=== PATIENT | female | born 1975 | race Caucasian/White ===

== ENCOUNTER 2022-10-01 10:38 | Outpatient (CLI) | payer BC, SELFPAY ==
--- NOTE | ~2022-10-01 | MR_ITS ---
EXAMINATION: MR brain/brain stem wo/w con DATE: 10/01/2022 11:40 INDICATION: Headache. Neck pain. TECHNIQUE: Magnetic resonance imaging (MRI) of the brain and brainstem was performed without and with 15 mL MultiHance intravenous contrast. COMPARISON: None. FINDINGS: There is no intracranial hemorrhage, acute infarction, or abnormal intracranial mass lesion . The ventricles are normal in size. There is an old blowout fracture of medial wall left orbit. The paranasal sinuses are clear. The mastoid air cells are normal. The IMPRESSION: 1. Normal brain. Reviewed, dictated and finalized at location A. MAKER'S CLERK IMPRESSION: 1. Normal brain.
== END 2022-10-01 10:39 | disposition home or self-care (01) ==
PROVIDERS: PCP Physician Assistant Medical; Visit Provider Physician Assistant Medical
DX: R51.9 Headache, unspecified (principal)
CPT/HCPCS: 70553; A9577

== ENCOUNTER → 2022-10-10 10:41 | Outpatient (CLI) | payer BC, SELFPAY ==
--- NOTE | ~2022-10-10 | MR_ITS ---
MRI of the cervical spine Clinical History: Pain Technique: Axial T2-weighted and gradient images, and sagittal T1-weighted, T2-weighted, and STIR regine ges were acquired. Findings: No acute fracture seen. Minimal grade 1 anterolisthesis of C3 over C4 noted. There are disc prostheses at the C4-C5 and C5-C6 disc spaces. No suspicious bone marrow signal abnormality identifi ed. At C2-C3, there is minimal disc osteophyte complex at the left paracentral region. No mateus spinal ca nal stenosis or cord compression. Neural foramina are preserved. At C3-C4, there is no significant disc bulge or herniation. Probable mild facet joint degenerative ch anges. No mateus canal stenosis or cord compression. No definite neural foraminal narrowing. At C4-C5, there is no definite disc bulge or herniation. No definite canal stenosis or cord compressi on. There is probable mild bilateral neural foraminal narrowing. At C5-C6, there is no definite disc bulge or herniation. No definite canal stenosis or cord compressi on. Possible mild bilateral neural foraminal narrowing. At C6-C7, there is no disc bulge or herniation. No spinal canal stenosis, cord compression, or neural foraminal narrowing. No abnormal signal seen in the spinal cord. Paravertebral soft tissues are unremarkable. Impression: Probable mild bilateral neural foraminal narrowing at C4-C5 and C5-C6. Minimal grade 1 anterolisthesis of C3 over C4. Intervertebral disc prostheses at the C4-C5 and C5-C6 disc spaces. Reviewed, dictated and finalized at [facility]. SALES SPECIALIST Impression: Probable mild bilateral neural foraminal narrowing at C4-C5 and C5-C6. Minimal grade 1 anterolisthesis of C3 over C4. Intervertebral disc prostheses at the C4-C5 and C5-C6 disc spaces.
== END ==
PROVIDERS: PCP Physician Assistant Medical; Visit Provider Physician Assistant Medical
DX: M54.2 Cervicalgia (principal); R51.9 Headache, unspecified
CPT/HCPCS: 72141

== ENCOUNTER 2023-01-29 08:17 | Outpatient (CLI) | payer BC, SELFPAY ==
--- NOTE | ~2023-01-29 | MM_ITS ---
EXAMINATION: MM screening tarah BI w liam HISTORY: Screening mammogram TECHNIQUE: Craniocaudal and mediolateral oblique 3-D tomosynthesis images were obtained and synthetic 2-D images were generated. CAD analysis was submitted and interpreted. COMPARISON: 01/04/2015 bilateral screening mammogram BREAST PARENCHYMAL COMPOSITION: There are scattered areas of fibroglandular density. FINDINGS: There is no evidence of suspicious mass, calcification, or architectural distortion to sugg est malignancy in either breast. There has been no suspicious interval change. IMPRESSION: 1. No mammographic evidence of malignancy. 2. Recommend routine screening mammography in one year. BI-RADS Category 1: Negative Reviewed, dictated and finalized at location A.
== END 2023-01-29 08:18 | disposition home or self-care (01) ==
LOC: ANHIMG 08:17
PROVIDERS: PCP Physician Assistant Medical; Visit Provider Physician Assistant Medical
DX: Z12.31 Encounter for screening mammogram for malignant neoplasm of breast (principal)
CPT/HCPCS: 77063; 77067

== ENCOUNTER 2023-04-10 09:02 | Outpatient (CLI) | payer BC, SELFPAY ==
[2023-04-10 09:46] LABS: Hematocrit 40.3 % (37.0-47.0); Hemoglobin 13.1 g/dL (12.0-15.0); Mean Corpuscular HGB Conc 32.5 g/dl (32-36); Mean Corpuscular Hemoglobin 30.5 pg (26-34); Mean Corpuscular Volume 93.9 fl (80-100); Mean Platelet Volume 10.1 fl (7.4-10.4); Platelet Count Result 331 k/mm3 (150-375); Red Blood Count 4.29 M/mm3 (4.2-5.4); Red Cell Distribution Width 12.5 % (11.5-14.5); White Blood Count 9.6 K/mm3 (4.5-10.0)
[2023-04-10 09:55] LABS: CRP 1.4 mg/dL (<1.0)
[2023-04-10 11:26] LABS: Erythrocyte Sedimentation Rate 16 mm/hr (0-20)
== END 2023-04-10 09:03 | disposition home or self-care (01) ==
LOC: ANHLAB 09:03
PROVIDERS: PCP Physician Assistant Medical; Visit Provider Nurse Practitioner
DX: R10.32 Left lower quadrant pain (principal); K57.92 Diverticulitis of intestine, part unspecified, without perforation or abscess without bleeding
CPT/HCPCS: 36415; 85027; 85652; 86140

== ENCOUNTER 2023-05-27 01:45 | Day surgery (SDC) | payer BC, SELFPAY ==
[2023-05-14 09:18] VITALS: BMI 23.3
[2023-05-27 06:49] VITALS: BP 139/86; PULSE 73; RESP 18; TEMP 36.2; O2SAT 100
[2023-05-27] MEDS: LACTATED RINGERS 1,000 ML 150 ML IV CONT (06:58)
--- NOTE | 2023-05-27 07:21 | WPDANESEPPF ---
Anes - Initial Pre Proc Eval Procedure: Operation Date: 05/27/23 08:00 Proposed Procedures p Colonoscopy - Matthew Siddiqui MD Date/Time: 05/27/23 07:21 Surgeon: Matthew Siddiqui MD Pre Op Diagnosis: diverticulitis Patient Data Age: 47 Gender: F Height: 1.63 m Weight: 60.5 kg Last Vital Signs Temp 97.2 F L 05/27/23 06:49 Pulse 73 05/27/23 06:49 Resp 18 05/27/23 06:49 BP 139/86 05/27/23 06:49 Pulse Ox 100 05/27/23 06:49 O2 Del Method Room Air 05/27/23 06:49 Allergies Allergy/AdvReac Type Severity Reaction Status Date / Time Sulfa (Sulfonamide Allergy Severe Hives Verified 05/27/23 06:47 Antibiotics) Vicryl sutures Allergy Severe Other Uncoded 05/27/23 06:47 Home Medications Medication Instructions Recorded Confirmed Type fluticasone furoate 200 1 inh inhalation DAILY PRN SOB 06/18/22 05/14/23 History mcg-vilanterol 25 mcg/dose inhalation powder (Breo Ellipta) pantoprazole 40 mg tablet,delayed 40 mg PO QAM #90 tabs 06/18/22 05/14/23 Rx release pravastatin 20 mg tablet 20 mg PO QHS #90 tabs 06/18/22 05/14/23 Rx venlafaxine 75 mg capsule,extended 75 mg PO DAILY #90 caps 06/18/22 05/14/23 Rx release 24 hr ondansetron 8 mg disintegrating 8 mg PO Q8H PRN nausea and 12/10/22 05/14/23 Rx tablet vomiting 0 days #30 tabs alprazolam 0.25 mg tablet (Xanax) 0.25 mg PO BID PRN anxiety #60 tabs 12/24/22 05/14/23 Rx losartan 100 mg tablet See Rx Instructions .Route 04/25/23 05/14/23 Rx .COMPLEX #90 tabs semaglutide (weight loss) 2.4 See Rx Instructions .Route 04/30/23 05/14/23 Rx mg/0.75 mL subcutaneous pen .COMPLEX #3 mL injector carisoprodol 350 mg tablet (Soma) 350 mg PO HS 05/14/23 05/14/23 History magnesium oxide 400 mg PO DAILY 05/14/23 05/14/23 History turmeric 1,500 mg PO DAILY 05/14/23 05/14/23 History valacyclovir 1 gram tablet 2,000 mg PO Q12H PRN FEVER BLISTER 05/14/23 History (Valtrex) zolpidem 10 mg tablet 10 mg PO QHS insomnia 05/14/23 05/14/23 History Patient hx anesthesia problems: none Family hx anesthesia problems: none Results Review: All pre-operative results and documents have been reviewed as part of the pre-operative evaluation. [facility] Past Medical History Medical History (Updated 04/10/23 @ 08:55 by Adenike Kaiser APRN) Acute diverticulitis Anxiety Depression Hypertension LLQ discomfort Surgical History Surgical History History of hysterectomy History of knee surgery 1993, 1994, 2000, 2004 History of shoulder surgery 2017 History of sinus surgery 1997, 2005 History of tonsillectomy 2006 Family History Family History Mother Hypertension Social History Social History Smoking status: Never smoker Tobacco type: cigars Second hand tobacco smoke exposure: No Additional smoking assessment comments: OCC. 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
--- NOTE | 2023-05-27 07:33 | PM.HPGS ---
History of Present Illness History of Present Illness Consent: Risks, benefits, and alternatives have been discussed and questions answered. Patient agrees to proceed with procedure. Chief complaint: diverticulitis Narrative: Violeta Goldberg is a 47 year old female with diverticulitis treated with antibiotics, never had colonoscopy, now asymptomatic Review of Systems Constitutional: Constitutional: Denies headache(s) and Denies weakness Eyes: Eyes: Denies blurry vision ENT: Reports Normal hearing present, Denies headache(s) and Denies neck pain Cardiovascular: Cardiovascular: Denies chest pain and Denies dyspnea Respiratory: Respiratory: Denies dyspnea Gastrointestinal: Gastrointestinal: Reports no additional gastrointestinal complaints Genitourinary: Genitourinary: Denies dysuria Musculoskeletal: Musculoskeletal: Denies neck pain Integumentary/Breasts: Skin/Breast: Denies dry skin Neurologic: Reports Normal hearing present, Denies headache(s) and Denies weakness Psychiatric: Psychiatric: Denies anxiety Endocrine: Endocrine: Denies change in body appearance Hematologic/Lymphatic: Hematologic/Lymphatic: Denies easy bleeding Allergic/Immunologic: Allergic/Immunologic: Denies urticaria PMFSH Past Medical History Medical History (Updated 05/27/23 @ 07:34 by Matthew Siddiqui MD) Acute diverticulitis Anxiety Colon cancer screening Depression History of diverticulitis Hypertension LLQ discomfort Surgical History Surgical History History of hysterectomy History of knee surgery 1993, 1994, 2000, 2004 History of shoulder surgery 2017 History of sinus surgery 1997, 2006 History of tonsillectomy 2006 Family History Family History Mother Hypertension Social History Social History Smoking status: Never smoker Tobacco type: cigars Second hand tobacco smoke exposure: No Additional smoking assessment comments: OCC. 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 Gender identity (if verbalized by the patient): Female Sexual Orientation (if Verbalized by the Patient): Straight or Heterosexual Spiritual care concerns: No Meds Home Medications and Allergies Home Medications Medication Instructions Recorded Confirmed Type fluticasone furoate 200 1 inh inhalation DAILY PRN SOB 06/18/22 05/14/23 History mcg-vilanterol 25 mcg/dose inhalation powder (Breo Ellipta) pantoprazole 40 mg tablet,delayed 40 mg PO QAM #90 tabs 06/18/22 05/14/23 Rx release pravastatin 20 mg tablet 20 mg PO QHS #90 tabs 06/18/22 05/14/23 Rx venlafaxine 75 mg capsule,extended 75 mg PO DAILY #90 caps 06/18/22 05/14/23 Rx release 24 hr ondansetron 8 mg disintegrating 8 mg PO Q8H PRN nausea and 12/10/22 05/14/23 Rx tablet vomiting 0 days #30 tabs alprazolam 0.25 mg tablet (Xanax) 0.25 mg PO BID PRN anxiety #60 tabs 12/24/22 05/14/23 Rx losartan 100 mg tablet See Rx Instructions .Route 04/25/23 05/14/23 Rx .COMPLEX #90 tabs semaglutide (weight loss) 2.4 See Rx Instructions .Route 04/30/23 05/14/23 Rx mg/0.75 mL subcutaneous pen .COMPLEX #3 mL injector carisoprodol 350 mg tablet (Soma) 350 mg PO HS 05/14/23 05/14/23 History magnesium oxide 400 mg PO DAILY 05/14/23 05/14/23 History turmeric 1,500 mg PO DAILY 0
[2023-05-27 07:49] VITALS: BP 114/75; PULSE 89; RESP 19; TEMP 31.6; O2SAT 100
[2023-05-27 07:59] VITALS: BP 119/80; PULSE 70; RESP 20; O2SAT 100
[2023-05-27 08:09] VITALS: BP 126/89; PULSE 68; RESP 16; O2SAT 100
== END 2023-05-27 08:13 | disposition home or self-care (01) ==
PROVIDERS: PCP Physician Assistant Medical; Visit Provider Internal Medicine Gastroenterology
PROC: 0DJD8ZZ Inspection of Lower Intestinal Tract, Via Natural or Artificial Opening Endoscopic (ICD-10-PCS; CPT 45378; principal; 2023-05-27 08:00)
DX: Z12.11 Encounter for screening for malignant neoplasm of colon (principal); K57.30 Diverticulosis of large intestine without perforation or abscess without bleeding; K64.8 Other hemorrhoids; Z87.19 Personal history of other diseases of the digestive system; I10 Essential (primary) hypertension; F41.9 Anxiety disorder, unspecified; F32.A Depression, unspecified; Z72.0 Tobacco use; Z79.51 Long term (current) use of inhaled steroids; Z79.85 Long-term (current) use of injectable non-insulin antidiabetic drugs
CPT/HCPCS: 45378; J2704; J7120

== ENCOUNTER 2024-03-23 15:51 | Outpatient (CLI) | payer BC, SELFPAY ==
--- NOTE | ~2024-03-23 | MR_ITS ---
EXAMINATION: MR lower leg LT wo/w con DATE: 03/23/2024 16:52 INDICATION: Nonhealing wound at the anteromedial left lower leg. Assess for osteomyelitis. TECHNIQUE: Magnetic resonance imaging (MRI) of the left lower leg was performed without and with 13 m L Multihance intravenous contrast. A marker was placed over the region of concern. Sequences include d axial, sagittal and coronal T1-weighted FSE and fluid sensitive FSE STIR. Precontrast axial T1-weig hted FS FSE and post contrast axial, sagittal and coronal T1-weighted FS FSE were also obtained. COMPARISON: Radiographs dated 02/19/2024 FINDINGS: Focal irregularity along the skin surface suggesting ulceration immediately underlying the marker ind icating the region of concern at the anteromedial aspect of the distal left lower leg. There is edema and nonmasslike enhancement in the immediately underlying subcutaneous tissues with less severe sarah a without enhancement extending more proximally and distally in the subcutaneous tissues. No abscess. Minimal thin linear fluid signal and enhancement extending along the underlying periosteum but witho ut evident cortical erosion or abnormal cortical or medullary signal or enhancement to suggest osteom yelitis. Metallic magnetic field artifact associated with fixation screws at the anterior tibial tube rosity suggesting prior repositioning osteotomy. The musculature and visualized portions of the tendo ns of the left lower leg are normal. No tenosynovitis. No ankle joint effusion. IMPRESSION: 1. Subcutaneous edema and enhancement consistent with cellulitis without abscess underlying a likely shallow ulceration at the anteromedial aspect of the distal left lower leg. 2. Minimal periostitis along the immediately underlying tibia with no cortical erosion or cortical or marrow signal changes or enhancement to suggest osteomyelitis. Reviewed, dictated and finalized at location A. IMPRESSION: 1. Subcutaneous edema and enhancement consistent with cellulitis without absces s underlying a likely shallow ulceration at the anteromedial aspect of the dist al left lower leg. 2. Minimal periostitis along the immediately underlying tibia with no cortical erosion or cortical or marrow signal changes or enhancement to suggest osteomye litis.
== END 2024-03-23 15:52 ==
PROVIDERS: PCP Physician Assistant Medical; Visit Provider Physician Assistant Medical
DX: S81.802D Unspecified open wound, left lower leg, subsequent encounter (principal); X58.XXXD Exposure to other specified factors, subsequent encounter
CPT/HCPCS: 73720; A9577

== ENCOUNTER 2024-03-27 08:32 | Outpatient (CLI) | payer BC, SELFPAY ==
--- NOTE | ~2024-03-27 | CT_ITS ---
EXAMINATION: CT diagnostic chest w con DATE: 03/27/2024 08:59 INDICATION: Solitary pulmonary nodule TECHNIQUE: Computed tomography (CT) of the chest was performed with 75 CC Omnipaque 350 intravenous c ontrast. Automated exposure control and iterative reconstruction technique were employed. Exam dose: 160.62 mGy-cm total exam DLP. COMPARISON: None FINDINGS: Normal heart size. No pericardial or pleural effusion. No thoracic aortic aneurysm or disse ction. No hilar or mediastinal mass lesion or lymphadenopathy. No axillary lymphadenopathy. No pulmonary infiltrate or consolidation or suspicious pulmonary mass density is noted. Normal morphology of the adrenal glands. Included skeletal structures are unremarkable. IMPRESSION: No significant abnormality Reviewed, dictated and finalized at Location A. Reviewed, dictated and finalized at location J. IMPRESSION: No significant abnormality
[2024-03-27 08:47] LABS: Estimated Glomerular Filt Rate > 60
== END 2024-03-27 08:33 ==
LOC: MICIMG 08:33
PROVIDERS: PCP Physician Assistant Medical; Visit Provider Physician Assistant Medical
DX: R91.1 Solitary pulmonary nodule (principal)
CPT/HCPCS: 71260; Q9967

== ENCOUNTER 2024-03-28 09:25 | Outpatient (CLI) | payer BC, SELFPAY ==
--- NOTE | ~2024-03-28 | MM_ITS ---
EXAMINATION: MM screening tarah BI w liam HISTORY: Screening TECHNIQUE: Craniocaudal and mediolateral oblique 3-D tomosynthesis images were obtained and synthetic 2-D images were generated. CAD analysis was submitted and interpreted. COMPARISON: Comparison to multiple prior studies sequentially, with oldest reviewed study dated 12/2014. BREAST PARENCHYMAL COMPOSITION: Not dense: There are scattered areas of fibroglandular density. FINDINGS: There is no evidence of suspicious mass, calcification, or architectural distortion to sugg est malignancy in either breast. There has been no suspicious interval change. IMPRESSION: 1. No mammographic evidence of malignancy. 2. Recommend routine screening mammography in one year. BI-RADS Category 1: Negative Reviewed, dictated and finalized at location B.
== END 2024-03-28 09:26 | disposition home or self-care (01) ==
LOC: ANHIMG 09:26
PROVIDERS: PCP Physician Assistant Medical; Visit Provider Physician Assistant Medical
DX: Z12.31 Encounter for screening mammogram for malignant neoplasm of breast (principal)
CPT/HCPCS: 77063; 77067

== ENCOUNTER 2024-05-29 12:44 | Emergency (ER) | payer BC, SELFPAY ==
[2024-05-29 12:51] VITALS: BP 144/92; PULSE 85; RESP 18; TEMP 36.7; O2SAT 100
--- NOTE | 2024-05-29 12:53 | ED.FEMALEGU ---
HPI - Female Genitourinary General Chief complaint: Urogenital-Female Stated complaint: urinary issue Time Seen by Provider: 05/29/24 12:54 Source: patient Mode of arrival: ambulatory Limitations: no limitations History of Present Illness HPI Narrative: Snehal is a 48-year-old female patient presenting to the clinic today with complaints of right lower quadrant abdominal pain and urinary frequency. She reports symptoms started yesterday. Pain is sharp, stabbing, and constant in the right lower quadrant. Rates pain 8/10 currently. History of partial hysterectomy - still has her ovaries. Denies any associated fever, chills, nausea, vomiting, or diarrhea. Last BM was this morning and normal for the patient Related Data Home Medications Medication Instructions Recorded Confirmed magnesium oxide 400 mg PO DAILY 05/14/23 05/29/24 turmeric 1,500 mg PO DAILY 05/14/23 03/03/24 Allergies Allergy/AdvReac Type Severity Reaction Status Date / Time Sulfa (Sulfonamide Allergy Severe Hives Verified 05/29/24 12:57 Antibiotics) Vicryl sutures Allergy Severe Other Uncoded 03/02/24 09:12 Review of Systems Review of Systems: Pertinent positives per HPI. Patient denies any fever, chills, rash, headache, visual changes, dizziness, cough, runny nose, sore throat, shortness of breath, chest pain, palpitations, nausea, vomiting, diarrhea, constipation PMFSH Past Medical History Medical History Acute diverticulitis Anxiety Colon cancer screening Depression Dyslipidemia GERD (gastroesophageal reflux disease) History of diverticulitis Hypertension LLQ discomfort Surgical History Surgical History History of hysterectomy History of knee surgery 1993, 1994, 2000, 2004 History of shoulder surgery 2017 History of sinus surgery 1997, 2006 History of tonsillectomy 2006 Family History Family History Mother Hypertension Social History Social History Smoking status: Never smoker Tobacco type: cigars Second hand tobacco smoke exposure: No Additional smoking assessment comments: OCC. 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 There is no relevant family history pertinent to the patient complaint. Exam Narrative: General: Well-developed, well nourished, in no apparent distress. Head: Normocephalic, atraumatic. Cardio: Regular rate and rhythm, s1 and s2 normal, no murmur appreciated. Resp: Clear to auscultation bilaterally, no rhonchi, rales, wheezing or rubs. Abdomen: Soft, pliable, bowel sounds present in all quadrants, right lower quadrant tender to palpation, positive psoas, positive jarring, negative rebound, no organomegly, no CVAT tenderness. Course Course Emergency Course: Portions of this record may have been created with voice recognition software. Level of Care: Express Care Visit Vital Signs Vital signs: Vital signs review
[2024-06-01 14:24] LABS: EDUAAPPEAR Clear; EDUABILI Negative (Negative); EDUABLOOD 1+ (Negative); EDUACOLOR1 Yellow; EDUAGLUCOSE Negative (Negative); EDUAKETONE Negative (Negative); EDUALEUKO Negative (Negative); EDUANITRATE Negative (Negative); EDUAPH 6.5; EDUAPROTEIN Negative (Negative); EDUAUROBILI 0.2
== END 2024-05-29 13:19 | disposition short-term general hospital (02) ==
PROVIDERS: Emergency Provider Nurse Practitioner Family; PCP Physician Assistant Medical
DX: R10.31 Right lower quadrant pain (principal); R31.9 Hematuria, unspecified; R35.0 Frequency of micturition; Z72.0 Tobacco use; E78.5 Hyperlipidemia, unspecified; K21.9 Gastro-esophageal reflux disease without esophagitis; I10 Essential (primary) hypertension; Z90.711 Acquired absence of uterus with remaining cervical stump
CPT/HCPCS: 81003; 99212; G0463

== ENCOUNTER 2024-05-29 13:38 | Emergency (ER) | payer BC, SELFPAY ==
--- NOTE | ~2024-05-29 | US_ITS ---
EXAMINATION: US pelvic complete w TV DATE: 05/30/2024 00:35 INDICATION: RLQ pain, 7.8cm cyst TECHNIQUE: Multiple transabdominal and endovaginal sonographic images of the pelvis were obtained. COMPARISON: CT abdomen and pelvis, same date. FINDINGS: Uterus: Surgically absent. Right Ovary: Not definitively visualized. Multiloculated thick-walled cystic fracture in the right ad nexa measuring approximately 7 x 4 cm. Candidate ovarian tissue intimately associated with posterior aspect of the cystic mass. Left Ovary: Not visualized. There is small volume free fluid in the pelvis. IMPRESSION: Left ovary not visualized. Approximately 7 x 4 cm multiloculated thick-walled cystic mass in the right adnexa, right ovary possi jama located within the posterior wall of the mass. Findings are suggestive of a peritoneal inclusion cyst, recommend pelvic MRI without and with contras t for further evaluation. Reviewed, dictated and finalized at location K. IMPRESSION: Left ovary not visualized. Approximately 7 x 4 cm multiloculated thick-walled cystic mass in the right adn exa, right ovary possibly located within the posterior wall of the mass. Findings are suggestive of a peritoneal inclusion cyst, recommend pelvic MRI wi thout and with contrast for further evaluation.
--- NOTE | ~2024-05-29 | CT_ITS ---
EXAMINATION: CT abdomen pelvis w con DATE: 05/29/2024 22:55 INDICATION: RLQ pain TECHNIQUE: Computed tomography (CT) of the abdomen and pelvis was performed with 100 mL Omnipaque-350 intravenous contrast. Automated exposure control and iterative reconstruction technique were employe d. The dose-length product was 399.14 mGy-cm. COMPARISON: None. FINDINGS: Lower thorax: Unremarkable Liver: Normal. Biliary/Gallbladder: Gallbladder is normal. No bile duct dilation. Pancreas: No mass or duct dilation. Spleen: Normal. Adrenals:No mass. Kidneys: No suspicious mass, obstructing stone, or hydronephrosis. GI tract: No small or large bowel dilation. Normal appendix. Diverticulosis without diverticulitis. Mesentery/Peritoneum: No ascites, mass, or free air. Retroperitoneum: No mass. Pelvis: Normal urinary bladder, uterus, and left ovary. 4.3 x 7.8 cm oblong, smoothly marginated thin -walled cystic structure in the right pelvis appears to be associated with the right ovary. Soft Tissues: Soft tissues and body wall unremarkable. Bones: No acute osseous finding. IMPRESSION: No CT evidence of appendicitis or diverticulitis. 7.8 cm right pelvic cyst, possible peritoneal inclusion cyst or paraovarian cyst. Consider pelvic ult rasound for further evaluation. Reviewed, dictated and finalized at location K. IMPRESSION: No CT evidence of appendicitis or diverticulitis. 7.8 cm right pelvic cyst, possible peritoneal inclusion cyst or paraovarian cys t. Consider pelvic ultrasound for further evaluation.
[2024-05-29 13:42] VITALS: BP 159/87; PULSE 73; RESP 18; TEMP 36.4; O2SAT 100
[2024-05-29 19:21] VITALS: BP 165/94; PULSE 62; RESP 15; TEMP 36.1; O2SAT 100
--- NOTE | 2024-05-29 19:31 | ED.ABDPAIN ---
HPI - Abdominal Pain General Chief Complaint: Abdominal Pain <Marcelino Morocho MD - Last Filed: 05/30/24 10:48> Stated Complaint: abd pain <Marcelino Morocho MD - Last Filed: 05/30/24 10:48> Time Seen by Provider: 05/29/24 19:11 <Marcelino Morocho MD - Last Filed: 05/30/24 10:48> History of Present Illness HPI narrative: 40-year-old female with history of diverticulitis present to the emergency department for evaluation for worsening right lower quadrant pain. Patient states pain started on Saturday and has persisted. Patient states the pain does not radiate to her upper quadrant or to her back. Patient denies any associated nausea vomiting. Patient does have a prior history of diverticulitis but this was located the left lower quadrant. Does report that the pain is worsened with movement. Patient has a prior history of hysterectomy but still has her ovaries. Patient has no prior history of ovarian cysts. <Marcelino Morocho MD - Last Filed: 05/30/24 10:48> Related Data Home Medications: Home Medications Medication Instructions Recorded Confirmed magnesium oxide 400 mg PO DAILY 05/14/23 05/29/24 turmeric 1,500 mg PO DAILY 05/14/23 03/03/24 <Marcelino Morocho MD - Last Filed: 05/30/24 10:48> Allergies/Adverse Reactions: Allergies Allergy/AdvReac Type Severity Reaction Status Date / Time Sulfa (Sulfonamide Allergy Severe Hives Verified 05/29/24 12:57 Antibiotics) Vicryl sutures Allergy Severe Other Uncoded 03/02/24 09:12 <Marcelino Morocho MD - Last Filed: 05/30/24 10:48> Review of Systems Review of Systems: All systems reviewed & are unremarkable except as noted in HPI and below <Marcelino Morocho MD - Last Filed: 05/30/24 10:48> PMFSH Past Medical History Medical History: Medical History Acute diverticulitis Anxiety Colon cancer screening Depression Dyslipidemia GERD (gastroesophageal reflux disease) History of diverticulitis Hypertension LLQ discomfort <Marcelino Morocho MD - Last Filed: 05/30/24 10:48> Surgical History Surgical History: Surgical History History of hysterectomy History of knee surgery 1993, 1994, 2000, 2004 History of shoulder surgery 2017 History of sinus surgery 1997, 2005 History of tonsillectomy 2005 <Marcelino Morocho MD - Last Filed: 05/30/24 10:48> Family History Family History: Family History Mother Hypertension <Marcelino Morocho MD - Last Filed: 05/30/24 10:48> Social History Social History: Social History Smoking status: Never smoker Tobacco type: cigars Second hand tobacco smoke exposure: No Additional smoking assessment comments: OCC. 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 HEAD: normocephalic, atraumatic. EYES: PERRLA/EOMI, conjunctivae clear. NOSE: Normal no drainage NECK: Supple. No adenopathy, no shawn
[2024-05-29 19:33] LABS: Add Urine Microscopic? YES; Appearance Urine Clear (Clear); Bacteria Urine None Seen /hpf; Bilirubin Urine Negative (Negative); Blood Urine 1+ (Negative); Color Urine Yellow (Yellow); Glucose Urine UA Negative (Negative); Ketones Urine Negative (Negative); Leukocyte Esterase Ur Negative LEU/UL (Negative); Nitrate Urine Negative (Negative); Non Pathogenic Casts 0-2; Protein Urine Negative (Negative); RBC Urine 0-2 /hpf (0-2); Squamous Epithelial Cell Urine None Seen /hpf (Few); Urobilinogen Urine 0.2 mg/dL (<2.0); WBC Urine 0-5 /hpf (0-3)
[2024-05-29] MEDS: SODIUM CHLORIDE 0.9% IV 1,000 ML 999 ML IV CONT (20:04)
[2024-05-29] MEDS: HYDROmorphone HCL INJ (*CRX) 1 MG/ML SYR 0.5 MG IV PUSH ×2 (20:22→21:52)
[2024-05-29] MEDS: ONDANSETRON INJ 4 MG/2 ML VIAL IV PUSH (20:24)
[2024-05-29 20:33] VITALS: BP 134/78; PULSE 79; RESP 16; O2SAT 100
[2024-05-29 21:00] LABS: Basophils Absolute Auto 0.1 K/mm3 (0.0-0.1); Basophils Percent Auto 0.6 % (0.2-1.2); Eosinophils Absolute Auto 0.1 K/mm3 (0-0.3); Eosinophils Percent Auto 1.2 % (0-4.4); Hematocrit 39.7 % (37.0-47.0); Hemoglobin 13.7 g/dL (12.0-15.0); Immature Granulocyte Absolute 0.05 K/mm3 (0.00-0.031); Immature Granulocyte Percent A 0.6 % (0-0.5); Immature Platelet Fraction Pct 9.6 % (0.9-11.2); Mean Corpuscular HGB Conc 34.5 g/dl (32-36); Mean Corpuscular Hemoglobin 31.6 pg (26-34); Mean Corpuscular Volume 91.5 fl (80-100); Mean Platelet Volume 11.5 fl (7.4-10.4); Monocytes Absolute Auto 0.5 K/mm3 (0.1-0.6); Neutrophils Absolute Auto 4.6 K/mm3 (1.3-6.7); Neutrophils Percent Auto 59.6 % (45.5-73.1); Platelet Count Result 167 k/mm3 (150-375); Red Blood Count 4.34 M/mm3 (4.2-5.4); White Blood Count 7.7 K/mm3 (4.5-10.0)
[2024-05-29 21:09] LABS: INR 0.9; Prothrombin Time 13.1 Seconds (11.1-14.7)
[2024-05-30 00:37] VITALS: BP 129/89; PULSE 81; RESP 18; O2SAT 100
[2024-05-30 01:26] LABS: Alanine Aminotransferase 17 U/L (6-35); Albumin Level 3.5 g/dL (3.5-5.1); Alkaline Phosphatase 62 U/L (38-126); Anion Gap 5 mmol/L (4-12); Aspartate Amino Transferase 28 U/L (14-36); Bilirubin,Total 0.6 mg/dL (0.2-1.3); Blood Urea Nitrogen 13 mg/dL (7-17); Calcium 7.8 mg/dL (8.4-10.2); Carbon Dioxide 26 mmol/L (22-30); Chloride 105 mmol/L (98-107); Estimated CRCL calculation 73 ml/min; Estimated Glomerular Filt Rate > 60; Glucose 84 mg/dL (65-110); Potassium 4.3 mmol/L (3.4-5.0); Sodium 136 mmol/L (137-145)
[2024-05-30 23:40] LABS: Estimated CRCL calculation 73 ml/min; Estimated Glomerular Filt Rate > 60
== END 2024-05-30 02:10 | disposition home or self-care (01) ==
PROVIDERS: Emergency Provider Emergency Medicine; PCP Physician Assistant Medical
DX: N94.89 Other specified conditions associated with female genital organs and menstrual cycle (principal); Z90.710 Acquired absence of both cervix and uterus; F41.8 Other specified anxiety disorders; E78.5 Hyperlipidemia, unspecified; I10 Essential (primary) hypertension
CPT/HCPCS: 36415; 74177; 76830; 76856; 80053; 81001; 81003; 85025; 85055; 85610; 85730; 96361; 96374; 96375; 99284; J1170; J2405; J7030; Q9967

== ENCOUNTER 2024-12-02 10:25 | Outpatient (CLI) | payer BC, SELFPAY ==
--- NOTE | ~2024-12-02 | XR_ITS ---
Right Hand Technique: PA, oblique, and lateral views were obtained. Clinical History: Ganglion Findings: No acute fracture or dislocation is seen. Osseous alignment is anatomic. Joint spaces are p reserved. Soft tissues are unremarkable. Impression: Unremarkable right hand. Reviewed, dictated and finalized at location M. Impression: Unremarkable right hand.
--- OUTSIDE RECORDS SUMMARY | 2024-12-02 11:48 | XMS_ITS | Clinical Summary ---
Author Organization [facility] Address [address] [place] [address] Care Team Providers Care Commodity Industry Analyst Name Role Phone Amaya Staples Primary Care Provider [phone] Jessica Howe MD Unavailable [phone] Allergies Active Allergy Reactions Criticality Noted Date Comments Latex Rash Medium 06/05/2020 Sulfa (Sulfonamide Antibiotics) Unknown,Hives Medium 0 12/22/2022 Unclassified Drug Other (See comments) Low 11/04/19 14 Polyglactin 910 Unknown 05/15/2016 Medications ALPRAZolam (XANAX) 0.25 mg tablet TK 1 T PO BID PRN 0 8 Active valACYclovir (VALTREX) 1 gram tablet 4 Active carisoprodoL (SOMA) 350 mg tablet TAKE 1 TABLET BY MOUTH THREE TIMES DAILY NEEDED FOR MUSCLE PAIN [address] (PROTONIX) 40 mg EC tablet Take 1 tablet (40 mg total) by mouth every morning 3 Active pravastatin (PRAVACHOL) 20 mg tablet Take 1 tablet (20 mg total) by mouth nightly at bedtime 3 Active losartan (COZAAR) 100 mg tablet Take 1 tablet (100 mg total) by mouth daily 3 Active zolpidem (AMBIEN) 10 mg tablet TAKE 1 TABLET BY MOUTH EVERY DAY AT BEDTIME NEEDED FOR INSOMNIA [address] (CYMBALTA) 60 mg capsule Take 1 capsule (60 mg total) by mouth daily 4 Active Nystop powder Apply topically 2 (two) times a day 4 Active triamcinolone (KENALOG) 0.1 % cream Apply topically 2 (two) times a day as needed for rash 454 g 11 4 Active Breo Ellipta 200-25 mcg/dose diskus inhaler 4 Active minocycline (MINOCIN,DYNACI N) 100 mg capsule Take 1 capsule (100 mg total) by mouth 2 (two) times a day 60 capsule 2 4 01/11/20 25 Active metroNIDAZOLE (METROCREAM) 0.75 % creamIndication s:Acne Rosacea Apply topically 2 (two) times a day 45 g 11 4 07/14/20 25 Active clindamycin (Cleocin T) 1 % lotion Apply topically 2 (two) times a day 60 mL 11 4 Active Active Problems Problem Noted Date Diagnosed Date Right ovarian cyst 06/22/2024 Assessment & Plan (07/08/2024 11:55 AM OIL RECOVERY OPERATOR): Reviewed pelvic ultrasound from today. Follow up ultrasound shows that right ovarian cysts are now much smaller. One measures 1.1 cm and the other 1 measures 2.6 cm. Patient denies any symptoms or problems. Therefore no additional follow up is necessary. Patient to call for any problems. Assessment & Plan (06/22/2024 6:28 PM CDT): Patient had CT scan done in the emergency room for pain. CT scan showed a multiloculated 7 x 4 cm complex ovarian mass. Pelvic ultrasound done today. Ultrasound was read out 0-RADS 2. Left ovary was normal. The right ovary showed a 3.7 and a 3.8 cm simple ovarian cyst. It did not read it out as 1 large multiloculated cyst. There was no evidence of ovarian torsion. Discussed with patient that her pain still could be from these 2 cysts. Torsion precautions given to patient. We will cancel MRI for now. We will do follow up ultrasound in several weeks to make sure these ovarian cysts have resolved. Patient to take ibuprofen for 24-36 hours to see if decreasing inflammation would take away the rest of her discomfort. ER precautions and pain precautions given to patient. Patient is comfortable with this plan. Routine gynecological examination 03/09/2024 Assessment & Plan (03/09/2024 4:30 PM CDT): Here for annual exam. Normal water technician exam today. Encouraged regular exercise and healthy diet and lifestyle. Monthly SBEs encouraged. Annual mammograms recommended. I recommend patient call her primary MD or the orthopedic doctor who is treating her for her left lower leg problem. Patient to go to the urgent care or the ER if the redness spreads. Patient will send them a message and photographs today Dysfunction of both eustachian tubes 01/15/2023 Actinic keratosis 03/18/2018 Other seborrheic keratosis 03/18/2018 Cutaneous leiomyoma 03/18/2018 Surgical History Surgery Date Site/Laterality Comments KNEE SURGERY Knee Surgery - 1993,1996,2000,2002 (Added by TW Conv) [place] TONSILLECTOMY PRIMARY/SECONDARY <AGE 12 Tonsillectomy - (Added by TW Conv) SINUS SURGERY Sinus Surgery - (Added by TW Conv) [place] TOTAL ABDOMINAL HYSTERECT W/WO RMVL TUBE OVARY 09/02/2016 - 09/01/2017 [facility] salpingectomy/ Biest SHOULDER SURGERY Shoulder Surgery - (Added by TW Conv) ENDOMETRIAL ABLATION Medical History Medical History Date Comments Hypertension Anxiety Elevated cholesterol Family History Medical History Relation Name Comments Esophageal cancer Father Family his tory of malignant neoplasm of esophagus - (Added by TW Conv) Stomach cancer Father Family histor y of malignant neoplasm of stomach - (Added by TW Conv) Hypertension Mother Family history of hypertension - (Added by TW Conv) Relation Name Status Comments Father Mother Social History Tobacco Use Types Packs/Day Years Used Date Smoking Tobacco: Some Days Cigars Smokeless Tobacco: Never Tobacco Cessation:Ready to Q uit: Not Asked; Counseling Given: Not Answered Alcohol Use Standard Drinks/Week Comments Yes 0 (1 standard drink = 0.6 oz pur e alcohol) social AUDIT-C Answer Date Recorded Q1: How often do you have a drink containing alc ohol? 2-4 times a month 07/08/2024 Q2: How many drinks containi ng alcohol do you have on a typical day when you are drinking? 1 or 2 07/08/2024 Q3: How often do you have si x or more drinks on one occasion? Never 07/08/2024 Comments No Sex and Gender Information Value Date Recorded Sex Assigned at Not on file Legal Sex Female 12:10 PM OIL RECOVERY OPERATOR Gender Identity Female 09/05/2022 10:31 PM OIL RECOVERY OPERATOR Sexual Orientation Straight 09/05/2022 10 :31 PM OIL RECOVERY OPERATOR Obstetrics History Para Term AB IAB SAB Ectopic Multiple Livin g Live Births 2 2 2 2 2 Date Outcome GA Total Labor Labor/2nd/3rd Weight Sex Type Anes PTL Ana A1 A5 Name Clin 2000 Term M Vag-S pont Living 2002 Term M Vag-S pont Living Last Filed Vital Signs Vital Sign Reading Time Taken Comments Blood Pressure 122/84 07/08/2024 11:11 AM OIL RECOVERY OPERATOR Pulse 88 12/22/2022 5:15 PM CDT Temperature 36.8 C (98.2 F) 12/22/2022 5:15 PM CDT Respiratory Rate 18 01/14/2023 8:57 AM CDT Oxygen Saturation 99% 12/22/2022 5:15 PM CDT Inhaled Oxygen Concentration - - Weight 65.7 kg (144 lb 12.8 oz) 024 11:11 AM OIL RECOVERY OPERATOR Height 162.6 cm (5' 4 ) 07/08/2024 11:1 1 AM OIL RECOVERY OPERATOR Body Mass Index 24.85 07/08/2024 11:11 AM OIL RECOVERY OPERATOR Plan of Treatment Health Maintenance Due Date Last Done Comments Colon Cancer Screening-Colonoscopy 1975 Depression Screening 1975 Hepatitis C Screening 1975 DTaP/Tdap/Td Vaccine (1 - Tdap) 1986 Hepatitis B Screening 1993 Pneumococcal vaccine <65 (1 of 2 - PCV) 1994 Breast Cancer Screening-Mammogram 04/17/2022 021, 04/17/2021 Influenza Vaccine (#1) 2024 06/20/2020 Regular Well Visit/Exam 18-64 03/09/2025 03/09/2024 Cervical Cancer Screening Discontinued 03/09/2024 Procedures Procedure Name Priority Date/Time Associated Diagnosis Comments PAP AND HIGH RISK HPV, REFLEX TO GENOTYPING Routine 03/09/2024 3:23 AM CDT Routine gynecological examination Special screening examination for human papillomavirus (HPV) Screening for malignant neoplasm of the cervix from Last 3 Months or Most Recently Relevant to Health Maintenance Results * Pap and High Risk HPV and Genotyping (Cytology Component) (03/09/2024 3:23 AM CDT) Thin prep (Pap test) 03/09/2024 3:23 AM CDT 03/10/2024 8:42 AM CDT Narrative [facility] - 03/11/2024 1:21 PM CDT EPIC results best viewed via link to PDF [address] [address] Tele: Brooke Figueroa MD - Dispatcher [employer] CYTOLOGY REPORT Note to Patients: This report may contain a detailed description of human tissue sent by a health care provider to the laboratory for pathologic evaluation. The content of this report is essential for diagnosis and may provide important critical findings. This information may be unfamiliar to patients to review without a medical professional present. It is advised that the patient review this report in the presence of a health care provider who can answer questions and explain the details. Patient Name: GOYO GONZALEZ Address: [address] [place] [address]- Gender: F : 1975 (Age: 48) Service: Location: N : [id number] Hospital #: [id number] Patient Type: [facility] SPECIMEN Taken: 03/09/2024 Reported: 03/11/2024 Physician(s): Jessica Howe M.D. FINAL DIAGNOSIS: SOURCE OF SPECIMEN - ThinPrep Pap and HPV w/ reflex Genotyping: STATEMENT OF ADEQUACY Source: Vaginal - Satisfactory for evaluation - Case screened using computer assisted imaging technology GENERAL CATEGORIZATION: - Negative for intraepithelial lesion or malignancy INTERPRETATION: - Specimen sent for HPV testing per physician order. cad/03/11/2024 13:21Lizette Santana M.S., CT (ASCP) Report Reviewed and Electronically Signed By Lizette Santana M.S., CT (ASCP)Clerical Data Follow A; G0145 ADDENDA: Addendum Comment Ancillary Testing: HPV Genotype 16 - Not Detected Reference Range: Not Detected HPV Genotype 18 - Not Detected Reference Range: Not Detected HPV High Risk Group (31, 33, 35, 39, 45, 51, 52, 56, 58, 59, 66 and 68) - Not Detected Reference Range: Not Detected This test was performed using the TRACIE 4800 Test performed by: [facility] [address] [place] [address] Security Software Engineer: Hardik Bailey M.D. Ph.D; CLIA# [id number] YULI Nieto (ASCP) Date Ordered: 03/11/2024 Status: Signed Out Date Complete: 03/12/2024 By: YULI Nieto (ASCP) Date Reported: 03/12/2024 CLINICAL DIAGNOSIS AND HISTORY Menstrual History: Total Hysterectomy REPORT IMAGES AND/OR SCANNED DOCUMENTS ONLY VIEWABLE IN PDF FORMAT The Pap test is a screening test used to aid in the detection of cervical cancer and its precursors. It should not be the sole means by which malignant and premalignant lesions are diagnosed. Both false negative and false positive results may occur. It also has poor sensitivity for the detection of endometrial lesions and should not be used to evaluate suspected endometrial abnormalities. For these reasons it is most important to obtain Pap tests at regular intervals, as recommended by your physician or nurse practitioner. Jessica Howe MD LAB CYTOLOGY ORDERABLES Fin al Result [facility] Laboratory Receiving [address] [place] [address] from Last 3 Months or Most Recently Relevant to Health Maintenance Insurance SPICER [employer] OOS [employer] OOS Care Teams Commodity Industry Analyst Relationship Specialty Start Date End Date Amaya Staples PA [address] [place] [address] PCP - General 11/11/17 Jessica Howe MD [address] [facility] [address] [place] [address] Consulting Physician Obstetrics and Gynecology 02/12/24
--- OUTSIDE RECORDS SUMMARY | 2024-12-02 11:48 | XMS_ITS | Encounter Summary ---
Author Organization [facility] Address [address] [place] [address] Care Team Providers Care Paster Hat Lining Name Role Phone Amaya Staples PA-C Primary Care Provider [phone] Encounter Details Date Type Department Care Team (Late st Contact Info) Description 06/05/2024 Close Message [facility] Patient Accounts [address] [place] [address] [facility] Payment plan - auto pay Social History Tobacco Use Types Packs/Day Years Used Date Smoking Tobacco: Never Smokeless Tobacco: Never Alcohol Use Standard Drinks/Week Comments Yes 0 (1 standard drink = 0.6 oz pur e alcohol) social Comments No Sex and Gender Information Value Date Recorded Sex Assigned at Female 11/04/2024 1:20 PM SENIOR QA TESTER Legal Sex Female 8:08 PM CDT Gender Identity Not on file Sexual Orientation Not on file documented as of this encounter Plan of Treatment Not on file documented as of this encounter Visit Diagnoses Not on filedocumented in this encounter Care Teams Paster Hat Lining Relationship Specialty Start Date End Date Amaya Staples PA-C [address] [place] [address] [address] [place] [address] PCP - General PHYSICIAN TAB BUILDER 03/16/23 documented as of this encounter
--- OUTSIDE RECORDS SUMMARY | 2024-12-02 11:48 | XMS_ITS | Continuity of Care Document ---
Author Organization [facility] Address [address] [place] [address] Phone Care Team Providers Care Manager Company Name Role Phone Cristobal Vasquez MD Unavailable Unavailable Procedures Procedure Date CERVICAL SPINE CT W/O CONTRAST INJECT, ANESTHETIC AND/OR ST EROID, TRANSFORAMINAL EPIDURAL; C/T, SINGLE LEVEL INJECT, ANESTHETIC AND/OR ST EROID, TRANSFORAMINAL EPIDURAL: C/T EACH ADDITIONAL SURGICAL TRAY LOW OSMOLAR CONTRAST (200 TO 299 MG IODI NE) INJ, DEXAMETHASONE SODUIM PHOSPHATE (DEC ADRON) 1MG Advance Directives Directive Yes / No Effective Date File Name No Information Encounters Encounter Description Practice Location Reason(s) For Visit Diagnoses Date Provider Providers Copied on Encounter [facility], [address], [place], [place], [id number], [place] tel:[phone] [facility] No Information Pedro Jain. [address], [place], [place], [id number], [place]. tel:[phone] Referring Provider: Robert Fuentes, [address], [place], [address]. tel:[phone] [employer] [facility], [address], [place], [place], [id number], [place] tel:[phone] [facility] No Information Lis Coleman. [address], [place], [place], [id number], [place]. tel:[phone] Referring Provider: Robert Fuentes, [address], [place], [address]. tel:[phone] Family History Family Member Type Diagnosis Age At Onset No Information Payers Payer name Insurance type Covered democrat ID Authoriza danya(s) [facility] ACCESS [id number] Social History Type Description Quantity Date Captured Comments Sex Female Smoking Status No Information Chief Complaint And Reason For Visit No Information Reason For Referral Reason For Referral No Information History Of Present Illness Encounter Date Complaint History Of Prese nt Illness No Information Functional Status Date Functional Assessmen t No Information Instructions Date Instruction Additional Infor mation No Information Assessments Type Assessment Date No Information Patient Care Teams Name Effective Dates (start - stop) Status Members No Information
--- OUTSIDE RECORDS SUMMARY | 2024-12-02 11:48 | XMS_ITS | Clinical Summary ---
Author Organization [facility] Address [address] [place] [address] Care Team Providers Care Telecommunications Manager Name Role Phone Amaya Staples PA-C Primary Care Provider [phone] Allergies Active Allergy Reactions Criticality Noted Date Comments Latex Rash Low 06/05/2020 Sulfa Antibiotics Unknown 12/22/2022 Medications ALPRAZolam 0.25 MG tablet Take 1 tablet (0.25 mg total) by mouth 2 (two) times daily. 04/11/20 20 Active BREO ELLIPTA 100-25 MCG/INH inhaler INL 1 PUFF PO D 05/30/20 20 Active losartan 50 MG tablet Take 1 tablet (50 mg total) by mouth daily. 05/10/20 20 Active venlafaxine XR 75 MG 24 hr capsule TK 2 CS PO D 04/10/20 20 Active zolpidem 5 MG tablet Take 1 tablet (5 mg total) by mouth nightly at bedtime. 05/10/20 20 Active pravastatin (PRAVACHOL) 20 MG tablet Take 1 tablet (20 mg total) by mouth nightly at bedtime. Active pantoprazole EC (PROTONIX) 40 MG tablet Take 1 tablet (40 mg total) by mouth daily. Active ondansetron (ZOFRAN) 8 MG tablet Take by mouth every 8 (eight) hours as needed for Nausea. Active ondansetron (ZOFRAN-ODT) 4 MG disintegrating tablet Take 1 tablet (4 mg total) by mouth every 8 (eight) hours as needed for Nausea. 20 tablet 03/16/20 23 Active Additional Information Patient not taking.Reported on 02/17/2024 Carisoprodol 250 MG Tab TAKE 1 TABLET BY MOUTH THREE TIMES DAILY NEEDED FOR MUSCLE PAIN 01/01/20 24 Active DULoxetine (CYMBALTA) 60 MG capsule Take 1 capsule (60 mg total) by mouth daily. 12/09/19 24 Active NIFEdipine ER (ADALAT CC) 30 MG 24 hr tablet Take 1 tablet (30 mg total) by mouth daily. 12/31/19 24 Active WEGOVY 2.4 mg/dose injection (PEN) ADMINISTER 2.4 MG UNDER THE SKIN WEEKLY 08/27/20 23 Active traMADol (ULTRAM) 50 MG tabletIndications: Acute Pain < 7 Day Supply Take 1 tablet (50 mg total) by mouth every 8 (eight) hours as needed for Pain. 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 Actinic keratosis 03/18/2018 Other seborrheic keratosis 03/18/2018 Encounters Date Type Department Care Team Description 11/09/2024 8:43 AM CDT - 11/09/2024 11:59 PM CDT Hospital Encounter [facility] Occupational Therapy [address] [place] [address] Esther Kapoor PA Smith, Kimberly M, OT Finger pain Discharge Disposition: Home or Self Care (Routine Discharge) 11/09/2024 Travel from Last 3 Months Family History Medical History Relation Comments Cancer Father Relation Status Comments Father Social History Tobacco Use Types Packs/Day Years Used Date Smoking Tobacco: Never Smokeless Tobacco: Never Tobacco Cessation:Counseling Given: Not Answered Alcohol Use Standard Drinks/Week Comments Yes 0 (1 standard drink = 0.6 oz pur e alcohol) social Comments No Sex and Gender Information Value Date Recorded Sex Assigned at Female 11/04/2024 1:20 PM CRYSTAL 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 Legal Sex Female 8:08 PM CDT Gender Identity Not on file Sexual Orientation Not on file Last Filed Vital Signs Vital Sign Reading Time Taken Comments Blood Pressure 144/89 02/17/2024 9:54 AM CDT Pulse 85 02/17/2024 9:54 AM CDT Temperature 37.2 C (99 F) 02/17/2024 9:54 AM CDT Respiratory Rate 18 02/17/2024 9:54 AM CDT Oxygen Saturation 99% 02/17/2024 9:54 AM CDT Inhaled Oxygen Concentration - - Weight 62.1 kg (137 lb) 02/17/2024 9:54 AM CDT Height 162.6 cm (5' 4 ) 02/17/2024 9:54 AM CDT Body Mass Index 23.52 02/17/2024 9:54 AM CDT Plan of Treatment Health Maintenance Due Date Last Done Comments Colorectal Cancer Screening Colonoscopy (10 Years) 1975 Annual Physical 1978 Hepatitis C 1993 DTaP, Tdap and Td Vaccines ( 1 - Tdap) 1994 Hepatitis B Vaccines (1 of 3 - 19+ 3-dose series) 1994 Mammogram Screening 04/17/2023 04/17/2021 COVID-19 Vaccine (2023-2 5 season) 2024 PHQ-2 (Physician Belle) 09/02/2024 Meningococcal B Vaccine Aged Out No l onger eligible based on patient's age to complete this topic Meningococcal Vaccine Aged Out No barb crystal eligible based on patient's age to complete this topic Pneumococcal Vaccine: Pediat rics (0 to 5 Years) and At-Risk Patients (6 to 64 Years) Aged Out No longer eligi ble based on patient's age to complete this topic RSV Immunizations Under 20 Months Aged Out No longer eligible based on patient's age to complete this topic Procedures Procedure Name Priority Date/Time Associated Diagnosis Comments MG SCREENING W MO HEATHER DIGI Routine 04/17/2021 8:22 AM CDT Visit for screening mammogram from Last 3 Months or Most Recently Relevant to Health Maintenance Results * MG SCREENING W MO HEATHER DIGI (04/17/2021 8:22 AM CDT) Anatomical Region Laterality Modality Breast Bilateral Mammography 04/17/2021 10:2 2 AM CDT Narrative 04/17/2021 10:23 AM CDT EXAMINATION: MG SCREENING W MO HEATHER DIGI WITH TOMOSYNTHESIS AND COMPUTER-AIDED DETECTION (CAD) DATE: 04/17/2021 8:08 AM CLINICAL HISTORY: Visit for screening mammogram . COMPARISON STUDIES: 11/19/2018, 03/20/2017, 01/04/2015. FINDINGS: Bilateral CC, MLO, 2-D and 3-D acquisitions. Scattered residual fibroglandular parenchyma . Similar in appearance and distribution to the previous exams. No evidence of dominant mass, architectural distortion, skin thickening, nipple retraction or suspicious clusters of microcalcifications. Benign appearing calcifications redemonstrated. CONCLUSION: 1. BI-RADS Category 2 - benign findings. Annual screening mammography recommended. 2. BREAST TISSUE COMPOSITION: There are scattered areas of fibroglandular density. MQSA BI-RADS Categories: Category 0 - needs additional imaging evaluation. Category 1 - negative. Category 2 - benign findings. Category 3 - probably benign findings, but short interval follow-up is recommended. Category 4 - suspicious abnormality and biopsy should be considered though the lesion may well be benign. Category 5 - highly suggestive of malignancy and appropriate action should be taken. A) A negative report should not delay a biopsy if a dominant or clinically suspicious mass is present. B) Adenosis and dense breasts may obscure an underlying neoplasm. C) Study interpreted with computer aided detection. Voice recognition software utilized. Referred By: BERNARD PARK Interpreted By: Levi Alexandra, 04/17/2021 10:22 AM Bernard Park MD MAMMO Final Result from Last 3 Months or Most Recently Relevant to Health Maintenance Insurance [address] [place] [id number] [facility] Care Teams Telecommunications Manager Relationship Specialty Start Date End Date Amaya Staples PA-C [address] [place] [address] [address] [place] [address] PCP - General PHYSICIAN AUTO POLISHER 03/16/23
--- OUTSIDE RECORDS SUMMARY | 2024-12-02 11:48 | XMS_ITS | Encounter Summary ---
Author Organization [facility] Address [address] [place] [address] Care Team Providers Care Utility Mechanic Name Role Phone Amaya Staples PA-C Primary Care Provider [phone] Encounter Details Date Type Department Care Team (Late st Contact Info) Description 02/18/2024 [email or web address] Message Enc [facility] Family & Internal Medicine [address] [address] Hany Hdez PA [address] [place] [address] Blister Social History Tobacco Use Types Packs/Day Years Used Date Smoking Tobacco: Never Smokeless Tobacco: Never Alcohol Use Standard Drinks/Week Comments Yes 0 (1 standard drink = 0.6 oz pur e alcohol) social Comments No Sex and Gender Information Value Date Recorded Sex Assigned at Female 11/04/2024 1: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
--- OUTSIDE RECORDS SUMMARY | 2024-12-02 11:48 | XMS_ITS | Referral Summary ---
Author Organization [facility] Address [address] [place] [address] Care Team Providers Care Powerhouse Engineer Name Role Phone Amaya Staples Primary Care Provider [phone] Jessica Howe MD Unavailable [phone] Allergies Active Allergy Reactions Criticality Noted Date [...] 06/22/2024 Assessment & Plan (07/08/2024 11:55 AM DYNAMOTOR REPAIRER): Reviewed pelvic ultrasound from today. Follow up [...] PM CDT): Here for annual exam. Normal fish cutter exam today. Encouraged regular exercise and healthy [...] Other seborrheic keratosis 03/18/2018 Cutaneous leiomyoma 03/18/2018 Social History Tobacco Use Types Packs/Day Years [...] on file Legal Sex Female 12:10 PM DYNAMOTOR REPAIRER Gender Identity Female 09/05/2022 10:31 PM DYNAMOTOR REPAIRER Sexual Orientation Straight 09/05/2022 10 :31 PM DYNAMOTOR REPAIRER Last Filed Vital Signs Vital Sign Reading Time Taken Comments Blood Pressure 122/84 07/08/2024 11:11 AM DYNAMOTOR REPAIRER Pulse 88 12/22/2022 5:15 PM CDT Temperature 36.8 C (98.2 F) 12/22/2022 5:15 PM CDT Respiratory Rate 18 01/14/2023 8:57 AM CDT Oxygen Saturation 99% 12/22/2022 5:15 PM CDT Inhaled Oxygen Concentration - - Weight 65.7 kg (144 lb 12.8 oz) 024 11:11 AM DYNAMOTOR REPAIRER Height 162.6 cm (5' 4 ) 07/08/2024 11:1 1 AM DYNAMOTOR REPAIRER Body Mass Index 24.85 07/08/2024 11:11 AM DYNAMOTOR REPAIRER Plan of Treatment Not on file Procedures Procedure Name Priority Date/Time Associated Diagnosis [...] CDT 03/10/2024 8:42 AM CDT Narrative PATHOLOGY [facility] - 03/11/2024 1:21 PM CDT [facility] results best viewed via link to PDF [address] [address] Tele: Brooke Figueroa MD - Setter Induction Heating Equipment CYTOLOGY REPORT Note to Patients: This report [...] the details. Patient Name: GOYO GONZALEZ Address: [address] [place] [address]- Gender: F : 1975 (Age: 48) Service: Location: [facility] #: [id number] Patient Type: [facility] SPECIMEN Taken: 03/09/2024 Reported: 03/11/2024 Physician(s): Jessica Howe M.D. FINAL DIAGNOSIS: SOURCE OF SPECIMEN - ThinPrep Pap and HPV w/ reflex Genotyping: STATEMENT OF ADEQUACY Source: Vaginal - Satisfactory for evaluation - Case screened using computer assisted imaging technology GENERAL CATEGORIZATION: - Negative for intraepithelial lesion or malignancy INTERPRETATION: - Specimen sent for HPV testing per physician order. cad/03/11/2024 13:21Lizette Santana M.S., YULI (ASCP) Report Reviewed and Electronically Signed By Lizette Santana M.S., YULI (ASCP)Clerical Data Follow A; [id number] ADDENDA: Addendum [...] using the TRACIE 4800 Test performed by: [facility] [place] [address] Teacher Specialist: Hardik Bailey M.D. Ph.D; CLIA# [id number] YULI Nieto (ASCP) Date Ordered: 03/11/2024 Status: [...] LAB CYTOLOGY ORDERABLES Fin al Result PATHOLOGY [facility] Laboratory Receiving [address] [place], [place] [id number] from Last 3 Months or Most Recently Relevant to Health Maintenance Insurance [employer] Care Teams Powerhouse Engineer Relationship Specialty Start Date End Date Amaya Staples PA [address] [place] [address] PCP - General 11/11/17 Jessica Howe MD [address] [facility] [address] [place] [address] Consulting Physician Obstetrics and Gynecology 02/12/24
== END 2024-12-02 10:26 | disposition home or self-care (01) ==
PROVIDERS: PCP Physician Assistant Medical; Visit Provider Plastic Surgery
DX: M67.431 Ganglion, right wrist (principal)
CPT/HCPCS: 73130

== ENCOUNTER 2025-08-27 09:39 | Outpatient (CLI) | payer BC, SELFPAY ==
--- OUTSIDE RECORDS SUMMARY | 2024-03-24 02:00 | XMS_ITS ---
Author Organization [facility] Address [address] [place] [address] Care Team Providers Care Hospitality Specialist Name Role Phone Anna Cabrera Unavailable [phone] Encounters Encounter Location Date Provider Diagnosis [facility] [id number] [place] [address] 03/24/2024 Anna Cabrera Plan Of Treatment No Information Progress Notes * Violeta GONZALEZDOB:[birth year] (50 yo F)Acc No.[id number]:03/24/2024 Patient: Violeta ANGEL Provider: Arleen Cabrera MD :1975 A ge:48 Y S ex:Female Date:03/24/2024 [facility] [id number] Subjective: * Chief Complaints: * * Medical History: Objective: * Vitals: Assessment: Plan: * Treatment: * Billing Information: * Visit Code: * Procedure Codes: * Electronic signature of Saundra Cabrera MD on 08/27/2025 at 09:43 AM TEA BLENDER Sign off status: Pending * Provider: Arleen Cabrera MD Date: 0 03/24/2024 Generated for Bettie ng/Fakalig/eTransmitting on: 10/28/2024 09:43 AM TEA BLENDER
--- OUTSIDE RECORDS SUMMARY | 2024-07-16 03:15 | XMS_ITS ---
Author Organization [facility] Address [address] [place] [address] [address] [place] [address] Care Team Providers Care Professor Of Kinesiology Name Role Phone Anna Cabrera Unavailable [phone] REASON FOR VISIT F/up Encounters Encounter Location Date Provider Diagnosis [facility] [address] [facility] [address] [place] [address] 07/16/2024 Anna Cabrera Plan Of Treatment No Information Progress Notes * Violeta GONZALEZDOB:[birth year] (50 yo F)Acc No.[id number]:07/16/2024 Progress Notes Patient: Violeta ANGEL Provider: Arleen Cabrera MD :1975 A ge:48 Y S ex:Female Date:07/16/2024 [facility] [facility] Subjective: * Chief Complaints: * 1 . F/up. * Medical History: Objective: * Vitals: Assessment: Plan: * Treatment: * Billing Information: * Visit Code: * Procedure Codes: * Electronic signature of Saundra Cabrera MD on 08/27/2025 at 09:43 AM AG SERVICE MANAGER Sign off status: Pending * Provider: Arleen Cabrera MD Date: 09/15/2023 Generated for Printi ng/Faxing/eTransmitting on: 10/28/2024 09:43 AM AG SERVICE MANAGER
--- OUTSIDE RECORDS SUMMARY | 2024-09-10 03:00 | XMS_ITS ---
Author Organization [facility] Address [address] [place] [address] [address] [place] [address] Care Team Providers Care Director Of Graduate Medical Education Name Role Phone Anna Cabrera Unavailable [phone] REASON FOR VISIT TPI Encounters Encounter Location Date Provider Diagnosis [facility] [address] [facility] [address] [place] [address] 09/10/2024 Anna Cabrera Plan Of Treatment No Information Progress Notes * Violeta GONZALEZDOB:[birth year] (50 yo F)Acc No.[id number]:09/10/2024 Patient: Violeta ANGEL Provider: Arleen Cabrera MD :1975 A ge:49 Y S ex:Female Date:09/10/2024 [facility] [facility] Subjective: * Chief Complaints: * 1 . TPI. * Medical History: Objective: * Vitals: Assessment: Plan: * Treatment: * Billing Information: * Visit Code: * Procedure Codes: * Electronic signature of Saundra Cabrera MD on 08/27/2025 at 09:44 AM OFFICE MACHINES WIRER Sign off status: Pending * Provider: Arleen Cabrera MD Date: 0 09/10/2024 Generated for Printi ng/Faxing/eTransmitting on: 10/28/2024 09:44 AM OFFICE MACHINES WIRER
--- NOTE | ~2025-08-27 | MM_ITS ---
EXAMINATION: MM screening [facility] BI w [facility] HISTORY: Screening TECHNIQUE: Craniocaudal and mediolateral oblique 3-D tomosynthesis images were obtained and synthetic 2-D images were generated. CAD analysis was submitted and interpreted. COMPARISON: Comparison to multiple prior studies sequentially, with oldest reviewed study dated 01/29/2023. BREAST PARENCHYMAL COMPOSITION: Not dense: There are scattered areas of fibroglandular density. FINDINGS: There is no evidence of suspicious mass, calcification, or architectural distortion to suggest malignancy in either breast. There has been no suspicious interval change. IMPRESSION: 1. No mammographic evidence of malignancy. 2. Recommend routine screening mammography in one year. BI-RADS Category 1: Negative Reviewed, dictated and finalized at location O. CAL RESEARCH ASSISTANT
--- OUTSIDE RECORDS SUMMARY | 2025-08-27 09:43 | XMS_ITS | Clinical Summary ---
Author Organization [facility] Address [address] [place] [address] Care Team Providers Care Ip Network Architect Name Role Phone Amaya Staples Primary Care Provider [phone] Jessica Howe MD Unavailable [phone] Allergies Active Allergy Reactions Criticality Noted Date Comments Latex Rash Medium 06/05/2020 Sulfa (Sulfonamide Antibiotics) Unknown,Hives Medium 12/22/2022 Unclassified Drug Other (See comments) Low 11/04/19 14 Polyglactin 910 Other (See comments) 05/15/2016 They do not dissolve Medications ALPRAZolam (XANAX) 0.25 mg tablet TK [...] 2 (two) times a day 4 Active Emgality Pen 120 mg/mL pen injector ADMINISTER 1 ML UNDER THE SKIN MONTHLY 5 Active doxycycline (VIBRAMYCIN) 100 mg capsule Take 1 tablet/capsule (100 mg total) by mouth 2 (two) times a day 60 tablet/capsul e 3 5 10/30/19 26 Active clindamycin (CLEOCIN T) 1 % external solution Apply topically 2 (two) times a day 30 mL 11 5 07/02/20 Active Active Problems Problem Noted Date Diagnosed Date Right ovarian cyst 06/22/2024 Assessment & Plan (07/08/2024 11:55 AM ASSIGNMENT AGENT): Reviewed pelvic ultrasound from today. Follow up [...] Routine gynecological examination 03/09/2024 Assessment & Plan (03/10/2025 3:12 PM CDT): Here for annual exam. 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 Encouraged regular exercise and healthy diet and lifestyle. Monthly SBEs encouraged. Annual mammograms recommended. Assessment & Plan (03/09/2024 4:30 PM CDT): Here for annual exam. 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 Encouraged regular exercise and healthy [...] Surgery - 1993,1996,2000,2002 (Added by TW Conv) [place] TONSILLECTOMY PRIMARY/SECONDARY <AGE 12 Tonsillectomy - (Added by TW Conv) SINUS SURGERY Sinus Surgery - (Added by TW Conv) [place] TOTAL ABDOMINAL HYSTERECT W/WO RMVL TUBE OVARY 09/02/2016 - 09/01/2017 [facility] salpingectomy/ Biest SHOULDER SURGERY Shoulder Surgery - (Added by TW Conv) ENDOMETRIAL ABLATION Medical History Medical History Date Comments Hypertension Anxiety Elevated cholesterol HL (hearing loss) Family History Medical History Relation Name Comments [...] Types Packs/Day Years Used Date Smoking Tobacco: Former Cigars Smokeless Tobacco: Never Tobacco Cessation:Counseling Given: Not Answered Alcohol Use Standard Drinks/Week Comments Yes 0 (1 standard drink = 0.6 oz pur e alcohol) social AUDIT-C Answer Date Recorded Q1: How often do you have a drink containing alc ohol? 2-4 times a month 03/10/2025 Q2: How many drinks containi ng alcohol do you have on a typical day when you are drinking? 1 or 2 03/10/2025 Q3: How often do you have si x or more drinks on one occasion? Never 03/10/2025 Comments No Sex and Gender Information Value Date Recorded Sex Assigned at Not on file Legal Sex Female 12:10 PM ASSIGNMENT AGENT Gender Identity Female 09/05/2022 10:31 PM ASSIGNMENT AGENT Sexual Orientation Straight 09/05/2022 10 :31 PM ASSIGNMENT AGENT Obstetrics History Para Term AB IAB SAB Ectopic Multiple Livin g Live Births 2 2 2 2 2 Date Outcome GA Total Labor Labor/2nd/3rd Weight Sex Type Anes PTL Ana A1 A5 Name Clin 2000 Term M Vag-S pont Living 2002 Term M Vag-S pont Living Last Filed Vital Signs Vital Sign Reading Time Taken Comments Blood Pressure 106/76 03/10/2025 1:15 PM CDT Pulse 88 12/22/2022 5:15 PM CDT Temperature 36.8 C (98.2 F) 12/22/2022 5:15 PM CDT Respiratory Rate 17 01/28/2025 8:28 AM CDT Oxygen Saturation 99% 12/22/2022 5:15 PM CDT Inhaled Oxygen Concentration - - Weight 63 kg (139 lb) 03/10/2025 1:15 PM CDT Height 162.6 cm (5' 4) 03/10/2025 1:15 PM CDT Body Mass Index 23.86 03/10/2025 1:15 PM CDT Plan of Treatment Health Maintenance Due Date Last Done Comments Colon Cancer Screening-Colonoscopy 1975 Depression Screening 1975 Hepatitis C Screening 1975 Hepatitis B Screening 1993 DTaP/Tdap/Td Vaccine (2 - Td or Tdap) 06/23/2018 06/23/2008 Breast Cancer Screening-Mammogram 04/17/2022 04/17/2021, 04/17/2021 Influenza Vaccine (#1) 2025 , 06/08/2023, 06/18/2022, Additional history exists Zoster Vaccine (1 of 2) 2025 Regular Well Visit/Exam 18-64 03/10/2026 03/10/2025, 03/09/2024 Pneumococcal vaccine <65 Aged Out 07/25/2007 No longer eligible based on patient's age to complete this topic Cervical Cancer Screening Discontinued 03/09/2024 Procedures Procedure [...] CDT 03/10/2024 8:42 AM CDT Narrative PATHOLOGY [facility] - 03/11/2024 1:21 PM CDT EPIC results best viewed via link to PDF [address] [address] Tele: Brooke Figueroa MD - Pack Worker CYTOLOGY REPORT Note to Patients: This report [...] the details. Patient Name: GOYO GONZALEZ Address: [address] [place] [address]- Gender: F : 1975 (Age: 48) Service: Location: [facility] : [id number] [facility] #: [id number] Patient Type: [facility] SPECIMEN Taken: 03/09/2024 Reported: 03/11/2024 Physician(s): Jessica Howe M.D. FINAL DIAGNOSIS: SOURCE OF SPECIMEN - ThinPrep Pap and HPV w/ reflex Genotyping: STATEMENT OF ADEQUACY Source: Vaginal - Satisfactory for evaluation - Case screened using computer assisted imaging technology GENERAL CATEGORIZATION: - Negative for intraepithelial lesion or malignancy INTERPRETATION: - Specimen sent for HPV testing per physician order. cad/03/11/2024 13:21Charimisha Santana M.S., YULI (ASCP) Report Reviewed and [...] using the TRACIE 4800 Test performed by: [facility] [address] [place] [address] Baller Tender: Hardik Bailey M.D. Ph.D; CLIA# [id number] YULI Nieto (ASCP) Date Ordered: 03/11/2024 Status: [...] LAB CYTOLOGY ORDERABLES Fin al Result PATHOLOGY [facility] Laboratory Receiving [address] [place] [address] from Last 3 Months or Most Recently Relevant to Health Maintenance Insurance [employer] Care Teams Ip Network Architect Relationship Specialty Start Date End Date Amaya Staples PA [address] [place] [address] PCP - General 11/11/17 Jessica Howe MD [address] [facility] [address] [place] [address] Consulting Physician Obstetrics and Gynecology 02/12/24
--- OUTSIDE RECORDS SUMMARY | 2025-08-27 09:44 | XMS_ITS | Patient Health Record ---
Author Organization [facility] , Address [address] [place] [address] Care Team Providers Care Division Supervisor Name Role Phone Bernard Farnsworth MD Primary Care Provider Unavailab Robert Munoz Unavailable [phone] Waqas York Jr Unavailable Unavailable Allergies No Known Allergies Reason For Referral No Information Medications Medication SIG (Take, Route, Frequency, Duration) Notes Start Date End Date Status HYDROcodone-Acetaminophen 5-325 MG Tablet 1 tablet as needed Orally every 4-6 hours; Duration: 7 days 06/30/2021 Not-Taking Zolpidem Tartrate Ac tive Losartan Potassium A ctive Pantoprazole Sodium Active Cyclobenzaprine HCl Not-Taking Breo Ellipta Active Venlafaxine HCl Acti ve Social History Section Notes: with 2 children. Con sumes 2 alcoholic beverages a week. Denies tobacco use. Denies drug or chemical addiction. 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 Con sumes 2 alcoholic beverages a week. Denies tobacco use. Denies drug or chemical addiction. 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 Con sumes 2 alcoholic beverages a week. Denies tobacco use. Denies drug or chemical addiction. 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 Con sumes 2 alcoholic beverages a week. Denies tobacco use. Denies drug or chemical addiction. 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 Con sumes 2 alcoholic beverages a week. Denies tobacco use. Denies drug or chemical addiction. 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 Problems Problem Type SNOMED Code ICD Code Onset Dates Problem Status W/U Status Risk Notes Problem Cervical radiculopathy (13835801) Cervical radiculopathy (M54.12) Active confirmed Problem Joint implant in situ (finding) (268042192) Presence of other orthopedic joint implants (Z96.698) Active confirmed Problem Aftercare (956045242) Aftercare following joint replacement (Z47.1) Active confirmed Problem Spinal stenosis in cervical region (03363565) Stenosis of cervical spine (M48.02) Active confirmed Problem Degeneration of cervical intervertebral disc (16671184) Other cervical disc degeneration at C4-C5 level (M50.321) Active confirmed Problem Degeneration of cervical intervertebral disc (03676304) Other cervical disc degeneration, high cervical region (M50.31) Active confirmed Plan Of Treatment Pending Test Test Name Order Date Cervical discectomy and Total Disc Arthr oplasty 05/17/2021 Insurance Providers Payer Name Payer Address Payer Phone Subscriber Number Group Number Insured Name Patient Relationship to Insured Coverage Start Date Coverage End Date Chris [place]YES [phone] [place] [address] [id number] Jose Alejandro Ruiz Spouse - patient is the spouse of the insured Medical (General) History Medical History History ICD Code Hypertension Asthma COPD Depression Anxiety Leiomyoma Surgical History Surgery Date(Month/Year) Multiple knee surgeries Sinus surgery Tonsillectomy Hysterectomy Bilateral shoulder arthroscopy
--- OUTSIDE RECORDS SUMMARY | 2025-08-27 09:44 | XMS_ITS | Data Portability ---
Author Organization [employer], [facility] Address [address] [place] [id number] Assessment Encounter Date Assessment Date Assessment LastModified by Organization Details LastModified Time 04/29/2025 04/29/2025 1 . Bilateral partial rotator cuff tears - Right shoulder with 1.5 cm partial supraspinatus tear extending into infraspinatus - Left shoulder with partial supraspinatus tear - Both shoulders with subscapularis tendinosis/partia l tearing - Symptoms consistent with rotator cuff pathology - Patient has failed conservative management with cortisone injections - Not currently a surgical candidate; patient wishes to avoid rotator cuff surgery 2. Bilateral biceps tendinopathy - Right shoulder with active biceps tendinosis - Left shoulder status post biceps tenodesis 3. Bilateral mild AC joint arthrosis - Noted on radiographs - Not the primary source of symptoms 4. Status post left shoulder labral repair and biceps tenodesis (2018) - Previously good outcome until recent symptoms 5. Occupational considerations - Patient's work as [employer] requires prolonged arm elevation - Current pathology places patient at risk for progression of tears - Discussed impact of occupation on shoulder health and recovery Discussed treatment options including continued conservative management versus biologic intervention. Given the chronicity of symptoms and failure of conservative measures, recommended stem cell therapy to promote healing of partial tears. Explained that PRP alone would likely be insufficient given the extent and duration of pathology. Discussed expected recovery timeline of approximately 6 weeks with restricted activity for the first 2 weeks. BILATERAL SHOULDERS - Stem cell therapy recommended with the following components: - Bone marrow aspirate from iliac crest for stem cell harvest - Adipose-derived stem cells from subcutaneous fat - PRP derived from peripheral blood - Collagen grafts (potentially 1-2 per shoulder) to bridge partial tears TREATMENT PROTOCOL: - Initial injection with bone marrow aspirate, adipose-derived stem cells, and PRP - Follow-up injection with PRP and adipose-derived stem cells at 3-6 months POST-PROCEDURE RESTRICTIONS: - First 2 weeks: Minimal shoulder activity, no activities that elevate heart rate - Weeks 3-4: Progress to approximately 50% of normal activity - Week 6: Return to full activity as tolerated Not available 05/05/2025 12:37:31 Plan of Treatment Reminders Order Date Submit Date Provider Last Modified By Organization Details Last Modified Time Details Appointments [facility] 2025 09:00A M Dr. Jared Cazares Not available Not available Not available Lab None recorded. Referral None recorded. Procedures None recorded. Surgeries None recorded. Imaging XR, shoulder - RM 8 2024 025 Not available 05/04/2025 09:50:19 Medication Orders None recorded. Patient TargetsNo targets recorded. Patient InstructionsNo instructions recorded. Reason for Referral None Reported. Results Created Date Observation Date Name Description Value Unit Range Abnormal Flag Note LastModifiedBy Organization Detail LastModifiedTime 07/06/2007/09/2025 TESTO STERO NE, FREE, BIOAV AILAB LE AND TOTAL , MS albumin 4.4 g/dL 3.6-5. 1 Not Available [facility] [address], [address], 07/09/2025 17:07:29 07/06/2007/09/2025 TESTO STERO NE, FREE, BIOAV AILAB LE AND TOTAL , MS sex hormone binding globulin 70 nmol/ L 17-124 Not Available [facility] [address], [address], 07/09/2025 17:07:29 07/06/20 25 07/09/2025 TESTO STERO NE, FREE, BIOAV AILAB LE AND TOTAL , MS testosterone , free 1.3 pg/mL 0.2-5. 0 Not Available [facility] [address], [address], 07/09/2025 17:07:29 07/06/20 25 07/09/2025 TESTO STERO NE, FREE, BIOAV AILAB LE AND TOTAL , MS testosterone ,bioavailabl e 2.5 NG/dL 0.5-8. 5 Not Available [address] [address] [place], [address], 07/09/2025 17:07:29 07/06/20 25 07/09/2025 TESTO STERO NE, FREE, BIOAV AILAB LE AND TOTAL , MS testosterone , total, MS 20 NG/dL 2-45 For addit ional infor aarti coelho e refer to https ://ed ucati on.qu estNational Recovery Servicess. com/f aq/FA Q165 (This link is being provi ded for infor matflores nal/e ducat ional purpo ses only. ) (Note ) This test was devel oped and its chelle tical perfo rmanc e steve cteri stics have been deter mined by [employer]. It has not been clear ed or appro maricarmen by the FDA. This assay has been valid ated pursu ant to the CLIA regul ation s and is used for clini samantha purpo ses. MDF med fusio n [address] [facility] [address] [facility] [address] [phone] Formerly [facility], [facility] andree Johnson MD, PhD Not Available [address] [address] [place], [address], 07/09/2025 17:07:29 07/06/20 25 07/09/2025 TESTO STERO NE, FREE, BIOAV AILAB LE AND TOTAL , MS copy(ies) sent to: [facility] [place] [facility] [address] [place] [address] Not Available [facility] [address] [address] [place], [address], 07/09/2025 17:07:29 07/06/20 25 07/09/2025 TSH+F REE T4 TSH 1.91 mIU/L normal Refer ence Range > or = 20 Years 0.40- 4.50 Pregn danial Range s First trime ster 0.26- 2.66 Secon d trime ster 0.55- 2.73 Third trime ster 0.43- 2.91 Not Available [address], [address], 07/09/2025 17:07:30 07/06/20 25 07/09/2025 TSH+F REE T4 T4, free 1.1 NG/dL 0.8-1. 8 normal Not Available [address], [address], 07/09/2025 17:07:30 07/06/20 25 07/09/2025 TSH+F REE T4 copy(ies) sent to: [facility] [place] [facility] SYLVAIN SERVI LOGAN [facility] [address] [place] [address] Not Available [address], [address], 07/09/2025 17:07:30 07/06/20 25 07/09/2025 COMPR EHENS RYDER METAB OLIC PANEL glucose 81 mg/dL 65-99 normal Fasti ng refer ence inter shlomo Not Available [address], [address], 07/09/2025 17:07:30 07/06/20 25 07/09/2025 COMPR EHENS RYDER METAB OLIC PANEL urea nitrogen (BUN) 18 mg/dL 7-25 normal Not Available [address], [address], 07/09/2025 17:07:30 07/06/20 25 07/09/2025 COMPR EHENS RYDER METAB OLIC PANEL creatinine 0.92 mg/dL 0.50-0 .99 normal Not Available [address], [address], 07/09/2025 17:07:30 07/06/20 25 07/09/2025 COMPR EHENS RYDER METAB OLIC PANEL eGFR 76 mL/mi n/1.7 3m2 > or = 60 normal Not Available [address], [address], 07/09/2025 17:07:30 07/06/20 25 07/09/2025 COMPR EHENS RYDER METAB OLIC PANEL BUN/creatini ne ratio SEE NOTE: (calc ) 6-22 Not Repor sagrario: BUN and Creat inine are withi n refer ence range . Not Available [address], [address], 07/09/2025 17:07:30 07/06/20 25 07/09/2025 COMPR EHENS RYDER METAB OLIC PANEL sodium 137 mmol/ L 135-14 6 normal Not Available [address], [address], 07/09/2025 17:07:30 07/06/20 25 07/09/2025 COMPR EHENS RYDER METAB OLIC PANEL potassium 4.5 mmol/ L 3.5-5. 3 normal Not Available [address], [address], 07/09/2025 17:07:30 07/06/20 25 07/09/2025 COMPR EHENS RYDER METAB OLIC PANEL chloride 103 mmol/ L 98-110 normal Not Available [address], [address], 07/09/2025 17:07:30 07/06/20 25 07/09/2025 COMPR EHENS RYDER METAB OLIC PANEL carbon dioxide 26 mmol/ L 20-32 normal Not Available [address], [address], 07/09/2025 17:07:30 07/06/20 25 07/09/2025 COMPR EHENS RYDER METAB OLIC PANEL calcium 9.2 mg/dL 8.6-10 .2 normal Not Available [address], [address], 07/09/2025 17:07:30 07/06/20 25 07/09/2025 COMPR EHENS RYDER METAB OLIC PANEL protein, total 6.3 g/dL 6.1-8. 1 normal Not Available [address], [address], 07/09/2025 17:07:30 07/06/20 25 07/09/2025 COMPR EHENS RYDER METAB OLIC PANEL albumin 4.3 g/dL 3.6-5. 1 normal Not Available [address], [address], 07/09/2025 17:07:30 07/06/20 25 07/09/2025 COMPR EHENS RYDER METAB OLIC PANEL globulin 2.0 g/dL_ (calc ) 1.9-3. 7 normal Not Available [address], [address], 07/09/2025 17:07:30 07/06/20 25 07/09/2025 COMPR EHENS RYDER METAB OLIC PANEL albumin/glob ulin ratio 2.2 (calc ) 1.0-2. 5 normal Not Available [employer] [address], [address], 07/09/2025 17:07:30 07/06/20 25 07/09/2025 COMPR EHENS RYDER METAB OLIC PANEL bilirubin, total 0.4 mg/dL 0.2-1. 2 normal Not Available [address], [address], 07/09/2025 17:07:30 07/06/20 25 07/09/2025 COMPR EHENS RYDER METAB OLIC PANEL alkaline phosphatase 84 U/L 31-125 normal Not Available [address] [address] [place], [address], 07/09/2025 17:07:30 07/06/20 25 07/09/2025 COMPR EHENS RYDER METAB OLIC PANEL AST 16 U/L 10-35 normal Not Available [address] [address] [place], [address], 07/09/2025 17:07:30 07/06/20 25 07/09/2025 COMPR EHENS RYDER METAB OLIC PANEL ALT 13 U/L 6-29 normal Not Available [address], [address], 07/09/2025 17:07:30 07/06/20 25 07/09/2025 COMPR EHENS RYDER METAB OLIC PANEL copy(ies) sent to: [facility] [place] [facility] SYLVAIN AGUILAR [facility] [address] [facility] [place] [address] Not Available [address], [address], 07/09/2025 17:07:30 07/06/20 25 07/09/2025 CBC (INCL UDES DIFF/ PLT) white blood cell count 8.4 thous and/u L 3.8-10 .8 normal Not Available [address], [address], 07/09/2025 17:07:31 07/06/20 25 07/09/2025 CBC (INCL UDES DIFF/ PLT) red blood cell count 4.23 teressa on/uL 3.80-5 .10 normal Not Available [address], [address], 07/09/2025 17:07:31 07/06/20 25 07/09/2025 CBC (INCL UDES DIFF/ PLT) hemoglobin 12.9 g/dL 11.7-1 5.5 normal Not Available [address], [address], 07/09/2025 17:07:31 07/06/20 25 07/09/2025 CBC (INCL UDES DIFF/ PLT) hematocrit 39.9 % 35.0-4 5.0 normal Not Available [facility] [address], [address], 07/09/2025 17:07:31 07/06/20 25 07/09/2025 CBC (INCL UDES DIFF/ PLT) MCV 94.3 fL 80.0-1 00.0 normal Not Available [facility] [address], [address], 07/09/2025 17:07:31 07/06/20 25 07/09/2025 CBC (INCL UDES DIFF/ PLT) MCH 30.5 pg 27.0-3 3.0 normal Not Available [address], [address], 07/09/2025 17:07:31 07/06/20 25 07/09/2025 CBC (INCL UDES DIFF/ PLT) MCHC 32.3 g/dL 32.0-3 6.0 normal For adult s, a sligh t decre ase in the calcu lated MCHC value (in the range of 30 to 32 g/dL) is most likel y not clini fannie signi ezequiel t; temi er, it shoul d be inter prete d with cauti on in [facility] n with other red cell vladimir eters and the patie nt's clini samantha condi tion. Not Available [facility] [address], [address], 07/09/2025 17:07:31 07/06/2007/09/2025 CBC (INCL UDES DIFF/ PLT) RDW 12.5 % 11.0-1 5.0 normal Not Available [facility] [address], [address], 07/09/2025 17:07:31 07/06/20 25 07/09/2025 CBC (INCL UDES DIFF/ PLT) platelet count 333 thous and/u L 140-40 0 normal Not Available [address], [address], 07/09/2025 17:07:31 07/06/20 25 07/09/2025 CBC (INCL UDES DIFF/ PLT) MPV 10.1 fL 7.5-12 .5 normal Not Available [address], [address], 07/09/2025 17:07:31 07/06/20 25 07/09/2025 CBC (INCL UDES DIFF/ PLT) absolute neutrophils 5242 cells /uL 1500-7 800 normal Not Available [address], [address], 07/09/2025 17:07:31 07/06/20 25 07/09/2025 CBC (INCL UDES DIFF/ PLT) absolute lymphocytes 2369 cells /uL 850-39 00 normal Not Available [address], [address], 07/09/2025 17:07:31 07/06/20 25 07/09/2025 CBC (INCL UDES DIFF/ PLT) absolute monocytes 613 cells /uL 200-95 0 normal Not Available [address], [address], 07/09/2025 17:07:31 07/06/20 25 07/09/2025 CBC (INCL UDES DIFF/ PLT) absolute eosinophils 126 cells /uL 15-500 normal Not Available [address], [address], 07/09/2025 17:07:31 07/06/20 25 07/09/2025 CBC (INCL UDES DIFF/ PLT) absolute basophils 50 cells /uL 0-200 normal Not Available [facility] [place] [address] [place], [address], 07/09/2025 17:07:31 07/06/20 25 07/09/2025 CBC (INCL UDES DIFF/ PLT) neutrophils 62.4 % normal Not Available [address], [address], 07/09/2025 17:07:31 07/06/20 25 07/09/2025 CBC (INCL UDES DIFF/ PLT) lymphocytes 28.2 % normal Not Available [facility] [address], [address], 07/09/2025 17:07:31 07/06/20 25 07/09/2025 CBC (INCL UDES DIFF/ PLT) monocytes 7.3 % normal Not Available [address], [address], 07/09/2025 17:07:31 07/06/20 25 07/09/2025 CBC (INCL UDES DIFF/ PLT) eosinophils 1.5 % normal Not Available [address], [address], 07/09/2025 17:07:31 07/06/20 25 07/09/2025 CBC (INCL UDES DIFF/ PLT) basophils 0.6 % normal Not Available [address], [address], 07/09/2025 17:07:31 07/06/20 25 07/09/2025 CBC (INCL UDES DIFF/ PLT) copy(ies) sent to: [facility] [address] [place] [address] Not Available [address], [address], 07/09/2025 17:07:31 07/06/20 25 07/09/2025 HS CRP hs CRP 7.8 mg/L high Refer ence Range Optim al <1.0 Hosea morejon PS et al. Endoc r Pract .2017 ;23(S uppl 2):1- 87. For ages >17 Years : hs-CR P mg/L Risk Accor ding to AHA/C DC Guide lines <1.0 Lower relat ryder cardi ovasc ular risk. 1.0-3 .0 [place] ge relat ryder cardi ovasc ular risk. 3.1-1 0.0 [place] r relat ryder cardi ovasc ular risk. Consi sharron retes ting in 1 to 2 weeks to exclu de a benig n trans ient eleva tion in the basel ine CRP value secon fatoumata to infec tion or infla mmati on. >10.0 Persi stent eleva tion, upon retes ting, may be assoc iated with infec tion and infla mmati on. Pears on TA, Mensa h [place], Christi lopez RW, et al. [place] rs of infla mmati on and cardi ovasc ular disea se: appli catio n to clini samantha and publi c healt h pract ice: A state ment for healt hcare tremayne mills from the [facility] rs for Disea se Contr ol and Preve ntion and the Ameri can Heart Assoc iatio n. Circu latio n 2003; 107(3 ): 499-5 11. Not Available [employer] [address] [address] [place], [address], 07/09/2025 17:07:31 07/06/20 25 07/09/2025 HS CRP copy(ies) sent to: [facility] [place] [facility] [address] [place] [address] Not Available [facility] [address] [place], [address], 07/09/2025 17:07:31 07/06/20 25 07/09/2025 THYRO ID PEROX IDASE ANTIB ODIES thyroid peroxidase antibodies 1 IU/mL <9 Not Available [facility] [address] [address] [place], [address], 07/09/2025 17:07:32 07/06/20 25 07/09/2025 THYRO ID PEROX IDASE ANTIB ODIES copy(ies) sent to: [facility] [place] [facility] [address] [place] [address] Not Available [address] [address] [place], [address], 07/09/2025 17:07:32 07/06/20 25 07/09/2025 TRUMAN TIN ferritin 50 NG/mL 16-232 normal Not Available [address] [address] [place], [address], 07/09/2025 17:07:32 07/06/20 25 07/09/2025 TRUMAN TIN copy(ies) sent to: [facility] [place] [facility]IN SERVI LOGAN [facility] [address] [place] [address] Not Available [address] [address] [place], [address], 07/09/2025 17:07:32 07/06/20 25 07/09/2025 FSH FSH 21.2 mIU/m L normal Refer ence Range Folli cular Phase 2.5-1 0.2 Mid-c ycle Peak 3.1-1 7.7 Lutea l Phase 1.5- 9.1 Postm enopa usal 23.0- 116.3 Not Available [facility] [address] [address] [place], [address], 07/09/2025 17:07:33 07/06/20 25 07/09/2025 FSH copy(ies) sent to: [facility] [place] [facility] [address] [place] [address] Not Available [facility] [address] [place], [address], 07/09/2025 17:07:33 07/06/20 25 07/09/2025 VITAM IN B12 vitamin B12 414 pg/mL 200-11 00 normal Not Available [facility] [address] [place], [address], 07/09/2025 17:07:33 07/06/20 25 07/09/2025 VITAM IN B12 copy(ies) sent to: [facility] [place] [facility] [address] [place] [address] Not Available [facility] [address] [place], [address], 07/09/2025 17:07:33 07/06/20 25 07/09/2025 ESTRA DIOL estradiol 84 pg/mL normal Refer ence Range Femal e: Folli cular Phase : 30-14 4 Mid-C ycle: 64-35 7 Lutea l Phase : 56-21 4 Postm enopa usal: < or = 31 Refer ence range estab lishe d on post- puber paula patie nt popul ation . No pre-p ubert al refer ence range estab lishe d using this assay . For any patie nts for whom low Estra diol level s are antic ipate d (e.g. males , pre-p ubert al child adriana and hypog onada l/pos t-men opaus al femal es), the [facility] Major ls Insti tute Estra diol, Ultra sensi tive, LCMSM S assay is recom jose armando mcnamara (orde r code 21081 ). Aarti e note: patie nts being treat ed with the drug fulve stran t (Fasl odex( R)) have demon strat ed signi fican t inter feren ce in immun oassa y metho ds for estra diol measu remen t. The cross react ivity could lead to false ly eleva sagrario estra diol test resul ts leadi ng to an inapp ropri ate clini samantha asses sment of estro gen statu s. [facility] order code [id number] -Estr adiol , Ultra sensi tive LC/MS /MS demcharlotte gagnon es negli gible cross react ivity with rosannameche yvette montoya. Not Available [facility] [address] [address] [place], [address], 07/09/2025 17:07:33 07/06/20 25 07/09/2025 ESTRA DIOL copy(ies) sent to: [facility] [place] [facility] [address] [place] [address] Not Available [address] [place], [address], 07/09/2025 17:07:33 07/06/20 25 07/09/2025 T3, FREE T3, free 3.0 pg/mL 2.3-4. 2 normal Not Available [address] [place], [address], 07/09/2025 17:07:34 07/06/20 25 07/09/2025 T3, FREE copy(ies) sent to: [facility] [facility] SYLVAIN SERVI LOGAN [facility] [address] [place] [address] Not Available [facility] [address] [place], [address], 07/09/2025 17:07:34 07/06/20 25 07/09/2025 VITAM IN D,25- OH,TO PAULA,I A vitamin D,25-oh,tota l,ia 43 NG/mL 30-100 normal Vitam in D Statu s 25-OH Vitam in D: Defic iency : <20 ng/mL Insuf ficie ncy: 20 - 29 ng/mL Optim al: > or = 30 ng/mL For 25-OH Vitam in D testi ng on patie nts on D2-stanford pplem entat ion and patie nts for whom quant itati on of D2 and D3 fract ions is requi red, the [facility](TM ) 25-OH VIT D, (D2,D 3), LC/MS /MS is recom jose armando d: order code [id number] (vivian ents >2yrs ). See Note 1 Note 1 For addit ional infor aarti coelho refer to http: //[facility] [place] dannie Licona stDia gnost ics.c om/fa q/FAQ 199 (This link is being provi ded for infor julieta redmond/ educfareed linn l purpo ses only. ) Not Available [facility] [address] [place] [address], [address], 07/09/2025 17:07:34 07/06/20 25 07/09/2025 VITAM IN D,25- OH,TO Berna CHACON A copy(ies) sent to: [place] [facility]VAIN SERVI LOGAN [facility] [address] [facility] [place] [address] Not Available [facility] [address], [address], 07/09/2025 17:07:34 07/06/20 25 07/09/2025 HEMOG LOBIN A1C hemoglobin A1C 5.1 %_of_ total _HGB <5.7 normal For the purpo se of biancaynes adal for the prese nce of diabe mark: <5.7% Consi stent with the absen ce of diabe mark 5.7-6 .4% Consi stent with incre ased risk for diabe mark (pred iabet es) > or =6.5% Consi stent with diabe mark This assay resul t is consi stent with a decre ased risk of diabe mark. Curre ntly, no conse nsus exist s nicole barlow use of hemog lobin A1c for diagn osis of diabe mark in child adriana. Accor yen to Suzetteeri can Diabe mark Assoc iatio n (ADA) guide lines , hemog lobin A1c <7.0% repre sents optim al contr ol in non-p regna nt diabe tic patie nts. Diffe rent metri cs may apply to speci fic patie nt popul ation s. Stand ards of Medic al Care in Diabe mark(A DA). Not Available [employer] [facility] [address] [place], [address], 07/09/2025 17:07:35 07/06/20 25 07/09/2025 HEMOG LOBIN A1C copy(ies) sent to: [facility] [place] [facility] [address] [place] [address] Not Available [employer] [facility] [address] [address], [place], [address], 07/09/2025 17:07:35 Result Notes None recorded. Problems No Known Problems Procedures Surgical History Date Name Laterality Status Provider Name and Address Organization Details Recorded Time 04/29/20 25 Imaging Studies completed Casimiro Benson [address] [place], [address], [employer], [employer] 05/05/2025 12:36:58 09/02/19 21 Cervical Spine Surgery completed [employer], [employer] 04/29/2025 14:57:30 09/02/19 16 Hysterectomy completed [employer], [employer] 04/29/2025 14:57:12 09/02/19 05 Knee Surgery completed [facility], [employer] 04/29/2025 14:57:00 09/02/19 03 Knee Surgery completed [facility], [employer] 04/29/2025 14:56:54 09/02/18 95 Knee Surgery completed [employer], [employer] 04/29/2025 14:56:50 09/02/18 94 Knee Surgery completed [facility], [employer] 04/29/2025 14:56:44 Imaging Results None recorded. Procedure Notes None recorded. Medical Equipment None Reported. Allergies Allergen ID Allergen Name Allergen Category Reaction Reaction Severity Criticality Documentation Date Start Date Code Code System Note Provider Name and Address Organization Details Recorded Time 61476 Substance with sulfonami de structure and antibacte rial mechanism of action (substanc e) medicatio n Not available Not available Not available 04/29/2025 79391 8003 SNOMED Jacquie villeda [facility], [facility] 5 14:54:31 40588 latex environme nt,medica tion rash Not available high 08/10/20252019 36397 91 RxNorm Not Available [facility] - External Data Service - prod 5 03:06:52 30903 Latex (substanc e) environme nt,medica tion rash Not available low 08/10/20252019 99157 8007 SNOMED Not Available [employer] - External Data Service - prod 5 03:07:04 Medications Name Sig Start Date Stop Date Status Note LastModified by Organization Details LastModified Time carisoprodo l 350 mg tablet TAKE 1 TABLET BY MOUTH AT BEDTIME active Not Available Not Available No t Available doxycycline hyclate 100 mg capsule TAKE 1 CAPSULE BY MOUTH TWICE DAILY FOR 10 DAYS active Not Available Not Available No t Available azithromyci n 250 mg tablet TK 2 TS PO ON DAY 1, THEN TK 1 T PO D FOR 4 DAYS active Not Available Not Available No t Available valacyclovi r 1 gram tablet TAKE 2 TABLETS BY MOUTH EVERY 12 HOURS NEEDED FOR FEVER BLISTER 04/29 completed Not Available Not Available Not Available prednisone 20 mg tablet TAKE 1 TABLET BY MOUTH DAILY active Not Available Not Available No t Available ciprofloxac in 500 mg tablet TAKE 1 TABLET BY MOUTH EVERY 12 HOURS active Not Available Not Available No t Available triamcinolo ne acetonide 0.1 % topical cream APPLY TOPICALLY TO THE AFFECTED AREA TWICE DAILY NEEDED FOR RASH 04/29 completed Not Available Not Available Not Available alprazolam 0.25 mg tablet TAKE 1 TABLET BY MOUTH TWICE DAILY NEEDED FOR ANXIETY active Not Available Not Available No t Available pantoprazol e 40 mg tablet,gail yed release TAKE 1 TABLET BY MOUTH EVERY MORNING active Not Available Not Available No t Available metronidazo le 0.75 % topical cream APPLY TOPICALLY TO THE AFFECTED AREA TWICE DAILY active Not Available Not Available No t Available pravastatin 20 mg tablet Take 1 tablet every day by oral route. active Not Available Not Available No t Available mupirocin 2 % topical ointment APPLY TOPICALLY TO THE AFFECTED AREA TWICE DAILY active Not Available Not Available No t Available zolpidem 10 mg tablet TAKE 1 TABLET BY MOUTH EVERY DAY AT BEDTIME NEEDED FOR INSOMNIA active Not Available Not Available No t Available ondansetron 4 mg disintegrat ing tablet DISSOLVE 1 TABLET ON THE TONGUE EVERY 8 HOURS NEEDED FOR NAUSEA OR VOMITING active Not Available Not Available No t Available losartan 100 mg tablet TAKE 1 TABLET BY MOUTH DAILY active Not Available Not Available No t Available clindamycin 1 % lotion APPLY TOPICALLY TO THE AFFECTED AREA TWICE DAILY active Not Available Not Available No t Available duloxetine 60 mg capsule,del ayed release TAKE 1 CAPSULE BY MOUTH DAILY active Not Available Not Available No t Available Breo Ellipta 200 mcg-25 mcg/dose powder for inhalation INHALE 1 PUFF BY MOUTH DAILY NEEDED FOR SHORTNESS OF BREATH active Not Available Not Available No t Available Emgality Pen 120 mg/mL subcutaneou s pen injector ADMINISTE R 1 ML UNDER THE SKIN MONTHLY active Not Available Not Available No t Available Wegovy 2.4 mg/0.75 mL subcutaneou s pen injector ADMINISTE R 2.4 MG UNDER THE SKIN WEEKLY active Not Available Not Available No t Available Wegovy 1.7 mg/0.75 mL subcutaneou s pen injector ADMINISTE R 1.7 MG UNDER THE SKIN WEEKLY active Not Available Not Available No t Available Wegovy 1 mg/0.5 mL subcutaneou s pen injector ADMINISTE R 1 MG UNDER THE SKIN WEEKLY active Not Available Not Available No t Available Wegovy 0.5 mg/0.5 mL subcutaneou s pen injector ADMINISTE R 0.5 MG UNDER THE SKIN WEEKLY active Not Available Not Available No t Available Klayesta 100,000 unit/gram topical powder APPLY TOPICALLY TO THE AFFECTED AREA TWICE DAILY active Not Available Not Available No t Available Vitals Date Recorded Body height Body mass index (BMI) Body weight Heart rate Systolic And Diastolic Provider Name and Address Organization Details Last Updated DateTime 04/29/2025 162.56 cm 24 kg/m2 77134.93 g 67 /min 140/92 mm[Hg] [facility] 04/29/2025 15:06:00 Date Recorded Body height Body mass index (BMI) Body weight Provider Name and Address Organization Details Last Updated DateTime 08/10/2025 162.56 cm 24 kg/m2 84302.93 g [facility]uele Campos [facility] 08/10/2025 14:24:08 Social History Question Answer Notes LastModified by [employer] Details LastModified Time Tobacco Smoking Status Current Some Day Smoker [facility] 04/29/2025 14:56:17 What Is Your Relationship Status? Information not available 04/29/2025 Sex: Unknown Functional Status Question Answer Note LastModified by [employer] Details LastModified Time What is your level of alcohol consumption? Occasional Information not available 04/29/2025 Are you currently employed? Yes Information not available 04/29/2025 Mental Status None recorded. Family History Relationship Description Onset Age of this Age Resolved Age Notes LastModified by Organization Details LastModified Time Father No current problems or disability Not available 04/29 14:56:08 Mother No current problems or disability Not available 04/29 14:56:08 Medical History Condition Response Coronary Artery Disease N HIV or AIDS N Other Cancer N Gout N Kidney Stones N Hyperthyroidism N Breast Cancer N Hernia N Head Trauma/Injury N Lung Cancer N Hypothyroidism N Lung Disease N Depression N Blood Clots N COPD N Pneumonia N Pacemaker N Parkinson's N Anxiety Disorder N Multiple Sprains N Arthritis N Alcohol / Substance Abuse N Kidney Cancer N Cancer N Stroke N Melanoma N Aparna Danlos Syndrome (EDS) N Bowel Dysfunction N Neck Injury N Leg or Foot Ulcers N High Cholesterol Y Skin Cancer N Liver Disease N Rheumatoid Arthritis N Headaches N Fibromyalgia N Gastric Issues N Concussion N Kidney Disease N Heart Problems N Scoliosis N Chronic use of Pain Medication N Prostate Cancer N Migraines N Thyroid Problems N Alzheimers N DVT N Autoimmune Disorder N Anemia N Multiple Sclerosis N Tendon Tear N Ulcers N Heart Attack ([place]) N Osteopenia N Diabetes N Bleeding Disorder N Seizures/Epilepsy N Cardiac Stent N Tuberculosis N A-FIB N BPH N Lymphoma N Urinary Tract Infection N Back Problems N Diverticulitis N Dementia N Vision Problems N Asthma N Lupus N Director And Professor Medication Use N Peripheral Vascular Disease N Sleep Apnea N Sleep Disorder N GERD/Reflux N Hepatitis N Aneurysm N Thyroid Cancer N Heart Disease N Bronchitis N Pulmonary Embolism N Hypertension Y Osteoporosis N Gynecological HistoryNo gynecological history recorded. Obstetrics History GPAL:G 0 P 0 0 0 0 Past Encounters Encounter ID Performer Location Encounter Start Date Encounter Closed Date Diagnosis/Indication Diagnosis SNOMED-CT Code Diagnosis ICD10 Code Diagnosis IMO Codes Diagnosis Note [id number] Casimiro Benson [facility] [id number] [place] [id number] 04/29/2025 14:47:12 05/06/2025 11:07:41 Bilateral chronic pain of upper limbs [id number] M25.511 M25.512 G89.29 [id number] Do not use [facility] [id number] [place] [id number] 08/10/2025 14:12:58 08/10/2025 14:24:20 Health Concerns Section Related Observation LastModified by Organization Detai ls LastModified Time None Recorded Concern Status LastModified by Organization Details LastModified Time None Recorded Advance Directives Directive None Recorded Payers Insurance Date Sequence Insurance Name Policy Number Policy Richard Covered Member ID Richard Member ID Guarantor Name 08/07/2025 1 [facility] [id number] Jose Alejandro Zhang Jorgeaminta [id number] Violeta Goldberg Notes Date Note Type Note Provider Name and Address Organization Details Recorded Time 04/29/2025 text/html [age]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 Patient reports history of left shoulder labrum repair by Dr. York in 2017, which has been doing great until recent months when she began experiencing deep pain in the same area. Patient also reports a known partial tear in the right shoulder diagnosed in October 2023. She has been self-administering cortisone injections every three months since diagnosis, with the last injection in October. Patient plays softball and recently completed her season. She notes decreased strength in her right shoulder with intermittent, non-constant pain. 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 She occasionally experiences popping in her shoulders but denies catching, locking, or feeling stuck. Patient also reports history of bursitis surgery on the left shoulder. She has been managing her symptoms conservatively due to concerns about impact on her occupation, as she holds her arms elevated for extended periods throughout the workday. Casimiro Benson [id number] [facility], [place], [address], [facility], [facility] 05/05/2025 12:38:10 OBGyn Episode No OBEpisode recorded.
--- OUTSIDE RECORDS SUMMARY | 2025-08-27 09:44 | XMS_ITS | Encounter Summary ---
Author Organization [facility] Address [address] [place] [address] Care Team Providers Care Financial Officer Name Role Phone Amaya Staples PA-C Primary Care Provider [phone]- [phone] Encounter Details Date Type Department Care Team (Late st Contact Info) Description 02/18/2024 [employer]t Message Enc [facility] Family [facility] Internal Medicine [address] [address] Hany Hdez PA [address] [place] [address] Blister Social History Tobacco Use Types Packs/Day Years Used Date Smoking Tobacco: Never Smokeless Tobacco: Never Alcohol Use Standard Drinks/Week Comments Yes 0 (1 standard drink = 0.6 oz pur e alcohol) social Comments No Sex and Gender Information Value Date Recorded Sex Assigned at Female 11/04/2024 1:20 PM ETL CONSULTANT Legal Sex Female 8:08 PM CDT Gender Identity Not on file Sexual Orientation Not on file documented as of this encounter Plan of Treatment Not on file documented as of this encounter Visit Diagnoses Not on filedocumented in this encounter Care Teams Financial Officer Relationship Specialty Start Date End Date Amaya Staples PA-C [address] [place] [address] [address] [place] [address] PCP - General PHYSICIAN MAILER APPRENTICE 03/16/23 documented as of this encounter
--- OUTSIDE RECORDS SUMMARY | 2025-08-27 09:44 | XMS_ITS | Encounter Summary ---
Author Organization [facility] Address [address] [place] [address] Care Team Providers Care Plant Operations Coordinator Name Role Phone Amaya Staples PA-C Primary Care Provider [phone]- [phone] Encounter Details Date Type Department Care Team (Late st Contact Info) Description 06/05/2024 [place] Message [facility] Patient Accounts [address] [place] [address] [facility] Provider Payment plan - auto pay Social History Tobacco Use Types Packs/Day Years Used Date Smoking Tobacco: Never Smokeless Tobacco: Never Alcohol Use Standard Drinks/Week Comments Yes 0 (1 standard drink = 0.6 oz pur e alcohol) social Comments No Sex and Gender Information Value Date Recorded Sex Assigned at Female 11/04/2024 1:20 PM CLOTHER IN Legal Sex Female 8:08 PM CDT Gender Identity Not on file Sexual Orientation Not on file documented as of this encounter Plan of Treatment Not on file documented as of this encounter Visit Diagnoses Not on filedocumented in this encounter Care Teams Plant Operations Coordinator Relationship Specialty Start Date End Date Amaya Staples PA-C [address] [place] [address] [address] [place] [address] PCP - General PHYSICIAN SOCIOLOGY PROFESSOR 03/16/23 documented as of this encounter
--- OUTSIDE RECORDS SUMMARY | 2025-08-27 09:44 | XMS_ITS | Patient Health Record ---
Author Organization [facility] Address [address] [facility] [address] [place] [address] Care Team Providers Care Storeroom Keeper Name Role Phone Anna Cabrera Unavailable [phone] Allergies No Known Allergies Reason For Referral No Information Medications Medication SIG (Take, Route, Frequency, Duration) Notes Start Date End Date Status Pravastatin Sodium 20 MG Oral; Duration: 30 Days Active Wegovy 1 MG/0.5ML Subcutaneous; Durati on: 28 Days Active Zolpidem Tartrate 10 MG Oral; Duration: 90 Days Active Carisoprodol 350 MG TAKE 1 TABLET BY ELLEN TH AT BEDTIME Oral; Duration: 30 Days Active Triamcinolone Acetonide 0.1 % External; Duration: 30 Days Active valACYclovir HCl 1 GM TAKE 2 TABLETS BY MOUTH EVERY 12 HOURS NEEDED FOR FEVER BLISTER Oral; Duration: 5 Days Active Losartan Potassium 100 MG TAKE 1 TABLET BY MOUTH DAILY Oral; Duration: 90 Days Active DULoxetine HCl 60 MG TAKE 1 CAPSULE BY M OUTH DAILY Oral; Duration: 90 Days Active Plan Of Treatment No Information Insurance Providers Payer Name Payer Address Payer Phone Subscriber Number Group Number Insured Name Patient Relationship to Insured Coverage Start Date Coverage End Date [facility] [address] [place] [address] [id number] Violeta Ruiz Self - patient is the insured 4
--- OUTSIDE RECORDS SUMMARY | 2025-08-27 09:44 | XMS_ITS | Clinical Summary ---
Author Organization [facility] Address [address] [place] [address] Care Team Providers Care Cloud Architect Name Role Phone Amaya Staples PA-C Primary Care Provider +1- [phone] Allergies Active Allergy Reactions Criticality Noted Date [...] taking.Reported on 02/17/2024 Carisoprodol 250 MG Tab Take 250 mg by mouth daily as needed. At hs 01/01/20 24 Active DULoxetine (CYMBALTA) 60 MG [...] Day Supply 21 tablet 02/18/20 24 Active valACYclovir (VALTREX) 1 g tablet TAKE 2 TABLETS BY MOUTH EVERY 12 HOURS NEEDED FOR FEVER BLISTER 09/04/19 25 Active Active Problems Problem Noted Date Diagnosed Date Right ovarian cyst 06/22/2024 Dysfunction of both eustachian tubes 01/15/2023 Cutaneous leiomyoma 03/18/2018 Actinic keratosis 03/18/2018 Other seborrheic keratosis 03/18/2018 Family History Medical History Relation Comments Cancer Father Relation Status Comments Father Social History Tobacco Use Types Packs/Day Years Used Date Smoking Tobacco: Never Passive Smoke Exposure: Past Smokeless Tobacco: Never Tobacco Cessation:Counseling Given: No Alcohol Use Standard Drinks/Week Comments Yes 0 (1 standard drink = 0.6 oz pur e alcohol) social PHQ-2 Answer Date Recorded Patient Health Questionnaire-2 Score 0 12/10/2024 Comments No Sex and Gender Information Value Date Recorded Sex Assigned at Female 11/04/2024 1:20 PM MACHINE RIVETER Legal Sex Female 8:08 PM CDT Gender Identity Not on file Sexual Orientation Not on file Last Filed Vital Signs Vital Sign Reading Time Taken Comments Blood Pressure 130/88 12/10/2024 9:07 AM CDT Pulse 80 12/10/2024 9:07 AM CDT Temperature 36.4 C (97.6 F) 12/10/2024 9:07 AM CDT Respiratory Rate 20 12/10/2024 9:07 AM CDT Oxygen Saturation 100% 12/10/2024 9:07 AM CDT Inhaled Oxygen Concentration - - Weight 63.5 kg (140 lb) 12/10/2024 9:07 AM CDT Height 162.6 cm (5' 4) 12/10/2024 9:07 AM CDT Body Mass Index 24.03 12/10/2024 9:07 AM CDT Plan of Treatment Health Maintenance Due Date Last Done Comments Colorectal Cancer Screening Colonoscopy (10 Years) 1975 Annual Physical 1978 Hepatitis C 1993 DTaP, Tdap and Td Vaccines ( 1 - Tdap) 1994 Hepatitis B Vaccines (1 of 3 - 19+ 3-dose series) 1994 Mammogram Screening 04/17/2023 04/17/2021 COVID-19 Vaccine (1 - 2024-2 6 season) 2025 Influenza Adult (#1) 2025 Pneumococcal Vaccine: 50+ Ye ars (1 of 1 - PCV) 2025 Zoster Vaccines (1 of 2) 2025 PHQ-2 (Physician [facility]) Completed 12/10/2024 Hepatitis A Vaccines Aged Out No long er eligible based on patient's age to complete this topic Meningococcal B Vaccine Aged Out No l [...] Recently Relevant to Health Maintenance Insurance [employer] [address] Care Teams Cloud Architect Relationship Specialty Start Date End Date Amaya Staples PA-C [address] [place] [address] [address] [place] [address] PCP - General PHYSICIAN RETAIL SHIFT SUPERVISOR 03/16/23
--- OUTSIDE RECORDS SUMMARY | 2025-08-27 09:45 | XMS_ITS | Patient Health Record ---
Author Organization [facility] [facility] [place] ([address]) Address [address] [place] [address] Care Team Providers Care Lawn Service Supervisor Name Role Phone Bernard Farnsworth Primary Care Provider Olaf Camejo Unavailable [phone] Reason For Referral No Information Medications Medication SIG (Take, Route, Frequency, Duration) Notes Start Date End Date Status Ambien 10 MG 1 tab(s) orally once a day (at bedtime); Duration: 7 day(s) Active Xanax 0.25 MG 1 tab(s) orally 3 times a day; Duration: 30 day(s) Active ZyrTEC Allergy 10 MG 1 tab(s) orally onc e a day; Duration: 30 day(s) 05/11/2011 Active Omnaris 50 MCG/ACT 2 spray(s) intranasally bid; Duration: 30 day(s) 05/11/2011 Active Ventolin HFA 108 (90 Base) MCG/ACT 2 puff(s) inhaled QID/PRN; Duration: 30 day(s) Active predniSONE 10 MG patient to call md for instruction on dose. orally Call MD for frequency; Duration: 60 day(s) 05/11/2011 Active Citalopram Hydrobromide 20 MG 1 tab(s) orally once a day; Duration: 30 day(s) Active NASAL WASHES N/A DIRECTED INTRANASALLY NEEDED; Duration: 30 *Please review for potential replacement for e-prescription and drug interaction check* 05/11/2011 Active ADVAIR DISKUS 100 mcg-50 mcg 1 puff(s) inhaled 2 times a day; Duration: 30 day(s) Active Advair Diskus 100 MCG-50 MCG 1 PUFF(S) INHALED 2 TIMES A DAY; Duration: 30 DAY(S) *Please review and pick correct strength-formulati on from [employer] options. If intended option is not shown, discontinue and re-order from Quick Search* Active XANAX 0.25 mg 1 tab(s) orally 3 times a day; Duration: 30 day(s) Active AMBIEN 10 mg 1 tab(s) orally once a day (at bedtime); Duration: 7 day(s) Active CITALOPRAM 20 mg 1 tab(s) orally once a day; Duration: 30 day(s) Active OMNARIS 50 mcg/inh 2 spray(s) intranasally bid; Duration: 30 day(s) 05/11/2011 Active ZYRTEC 10 mg 1 tab(s) orally once a day; Duration: 30 day(s) 05/11/2011 Active PREDNISONE 10 mg patient to call md for instruction on dose. orally Call MD for frequency; Duration: 60 day(s) 05/11/2011 Active VENTOLIN HFA CFC free 90 mcg/inh 2 puff(s) inhaled QID/PRN; Duration: 30 day(s) Active Problems Problem Type SNOMED Code ICD Code Onset Dates Problem Status W/U Status Risk Notes Problem Allergic rhinitis due to allergen (12547067) Allergic rhinitis due to allergen (477.8) Active confirmed Problem Cough (21488524) Cough (786.2) Active confirmed Problem Chronic sinusitis (17848195) CHRONIC SINUSITIS NEC (473.8) Active confirmed Plan Of Treatment No Information Insurance Providers Payer Name Payer Address Payer Phone Subscriber Number Group Number Insured Name Patient Relationship to Insured Coverage Start Date Coverage End Date [facility] [address] [place] [address] [id number] Jose Alejandro Stahl Spouse - patient is the spouse of the insured Medical (General) History Surgical History Surgery Date(Month/Year) Sinus Surgery, Tonsillectomy 2005 Knee Surgery 1996, 1994, 2000, 20 07
== END 2025-08-27 09:40 | disposition home or self-care (01) ==
LOC: ANHFOHIMG 09:41
PROVIDERS: PCP Physician Assistant Medical; Visit Provider Physician Assistant Medical
DX: Z12.31 Encounter for screening mammogram for malignant neoplasm of breast (principal)
CPT/HCPCS: 77063; 77067